=== PATIENT | female | born 1950 | race Caucasian/White ===

== ENCOUNTER 2017-07-12 12:53 | Emergency (ER) | payer MEDICARE, OTHER ==
[~2017-07-12] VITALS: Ht 160 cm; Wt 59.0 kg
[~2017-07-12 12:53] MED LIST: ATEN25TA PO; ATR20T PO; KETO-22 PO; POTASSIUM CITRATE; ROSU5TAB PO; SIMV20TA3 PO
--- OUTSIDE RECORDS SUMMARY | 2017-07-12 12:59 | XMS REPORT | Continuity of Care Document ---
Author Author [facility] Organization [facility] Address Unknown Phone Unavailable Allergies Active Description Code Type Severity Reaction Onset Reported/Identified Relationship to Patient Clinical Status Yes codeine [id number] Drug Allergy Unknown N/V 03/18/2016 Yes nitrofurantoin [id number] Drug Allergy Unknown N/A 03/18/2016 Medications Problems Date Dx Coded Attending Type Code Diagnosis Diagnosed By 12/04/2010 Ot V64.3 NO PROC FOR REASONS NEC 12/04/2010 Ot V76.51 SCREEN MAL NEOP-COLON 05/14/2011 Ot 813.42 FX DISTAL RADIUS NEC-CL 05/14/2011 Ot 916.0 ABRASION HIP LEG 05/14/2011 Ot 920 CONTUSION FACE/SCALP/NCK 05/14/2011 Ot 959.01 HEAD INJURY, NOS 05/14/2011 Ot E000.8 OTHER EXTERNAL CAUSE STATUS 05/14/2011 Ot E849.0 ACCIDENT IN HOME 05/14/2011 Ot E884.9 FALL-1 LEVEL TO OTH [facility] 01/04/2012 Ot 715.34 LOC OSTEOARTH NOS-HAND 01/04/2012 Ot 842.10 SPRAIN OF HAND NOS 01/04/2012 Ot 959.5 FINGER INJURY NOS 01/04/2012 Ot E000.0 CIVILIAN ACTIVITY DONE FOR INCOME OR PAY 01/04/2012 Ot E013.2 ACTIVITIES INVOLVING VACUUMING 01/04/2012 Ot [address]849[address] [facility] 01/04/2012 Ot E927.0 OVEREXERTION FROM SUDDEN STRENUOUS MOVEM 08/02/2014 RUTH JORDAN, JOAO Telles Ot 241.0 08/10/2014 VESNA JORDAN, PELON White Ot V76.12 08/10/2014 VESNA JORDAN, PELON White Ot 610.4 06/29/2015 RUTH JORDAN, JOAO Telles Ot E04.1 06/30/2015 RUTH JORDAN, JOAO Telles Ot E04.1 07/06/2015 VESNA JORDAN, PELON White Ot Z12.31 07/20/2015 RUTH JORDAN, JOAO Telles Ot E04.1 03/18/2016 Ot 787.3 FLATUL/ERUCTAT/GAS PAIN 03/18/2016 Ot 478.19 OTHER DISEASE OF NASAL CAVITY AND SINUSE 03/18/2016 Ot 793.89 OTH (ABN) FINDINGS ON RADIOLOGICAL EXAMI 03/18/2016 Ot V76.12 OTH SCREEN MAMMO-MALIGN NEOPLASM OF REY 03/18/2016 Ot 241.0 NONTOX UNINODULAR GOITER 03/18/2016 Ot 241.0 NONTOX UNINODULAR GOITER 03/18/2016 Ot V76.12 OTH SCREEN MAMMO-MALIGN NEOPLASM OF REY 03/18/2016 Ot 241.0 NONTOX UNINODULAR GOITER 03/18/2016 ANAIS LOZADA DO Ot V76.12 OTH SCREEN MAMMO-MALIGN NEOPLASM OF REY 03/18/2016 RUTH JORDAN, JOAO Telles Ot 241.0 NONTOX UNINODULAR GOITER 03/18/2016 VESNA JORDAN, PELON White Ot V76.12 OTH SCREEN MAMMO-MALIGN NEOPLASM OF REY 03/18/2016 RUTH JORDAN, JOAO Telles Ot 241.0 NONTOX UNINODULAR GOITER 03/18/2016 PELON MALAGON MD Ot 610.4 MAMMARY DUCT ECTASIA 03/18/2016 PELON MALAGON MD Ot Z12.31 ENCNTR SCREEN MAMMOGRAM FOR MALIGNANT NE 03/18/2016 RUTH JORDAN, JOAO Telles Ot E04.1 NONTOXIC SINGLE THYROID NODULE 03/18/2016 OSORIO JORDAN, JUANITA Berger Ot M26.62 ARTHRALGIA OF TEMPOROMANDIBULAR JOINT 03/18/2016 JUANITA AC MD Ot R68.84 JAW PAIN 03/20/2016 JUANITA AC MD Ot M26.62 ARTHRALGIA OF TEMPOROMANDIBULAR JOINT 03/20/2016 OSORIO JORDAN, JUANITA Berger Ot R68.84 JAW PAIN 06/20/2016 Ot 478.19 OTHER DISEASE OF NASAL CAVITY AND SINUSE 06/20/2016 Ot 793.89 OTH (ABN) FINDINGS ON RADIOLOGICAL EXAMI 06/20/2016 Ot V76.12 OTH SCREEN MAMMO-MALIGN NEOPLASM OF REY 06/20/2016 Ot 241.0 NONTOX UNINODULAR GOITER 06/20/2016 Ot 241.0 NONTOX UNINODULAR GOITER 06/20/2016 Ot V76.12 OTH SCREEN MAMMO-MALIGN NEOPLASM OF REY 06/20/2016 Ot 241.0 NONTOX UNINODULAR GOITER 06/20/2016 ANAIS LOZADA DO Ot V76.12 OTH SCREEN MAMMO-MALIGN NEOPLASM OF REY 06/20/2016 RUTH JORDAN, JOAO Telles Ot 241.0 NONTOX UNINODULAR GOITER 06/20/2016 VESNA JORDAN, PELON White Ot V76.12 OTH SCREEN MAMMO-MALIGN NEOPLASM OF REY 06/20/2016 RUTH JORDAN, JOAO Telles Ot 241.0 NONTOX UNINODULAR GOITER 06/20/2016 VESNA JORDAN, PELON White Ot 610.4 MAMMARY DUCT ECTASIA 06/20/2016 PELON MALAGON MD Ot Z12.31 ENCNTR SCREEN MAMMOGRAM FOR MALIGNANT NE 06/20/2016 RUTH JORDAN, JOAO Telles Ot E04.1 NONTOXIC SINGLE THYROID NODULE 06/21/2016 JASWINDER PATRICK APRN Ot Z12.31 ENCNTR SCREEN MAMMOGRAM FOR MALIGNANT NE 06/26/2016 JASWINDER PATRICK APRN Ot Z12.31 ENCNTR SCREEN MAMMOGRAM FOR MALIGNANT NE 06/26/2016 JASWINDER PATRICK APRN Ot Z12.31 ENCNTR SCREEN MAMMOGRAM FOR MALIGNANT NE 06/28/2016 JASWINDER PATRICK APRN Ot Z12.31 ENCNTR SCREEN MAMMOGRAM FOR MALIGNANT NE 06/19/2017 PELON MALAGON MD Ot Z12.31 ENCNTR SCREEN MAMMOGRAM FOR MALIGNANT NE 06/24/2017 JASWINDER PATRICK APRN Ot Z12.31 ENCNTR SCREEN MAMMOGRAM FOR MALIGNANT NE 06/30/2017 PELON MALAGON MD, Ot Z12.31 ENCNTR SCREEN MAMMOGRAM FOR MALIGNANT NE Procedures Results Encounters ACCT No. Visit Date/Time Discharge Status Pt. Type Provider Facility Loc./Unit Complaint [id number] 06/27/2017 11:36:00 2016 23:59:59 [facility] Outpatient JASWINDER PATRICK APRN [facility] RAD R10.817 [id number] 06/24/2017 10:57:00 2016 23:59:59 [facility] Outpatient PELON MALAGON MD [facility] RAD SCREENING [id number] 06/20/2016 09:21:00 2015 23:59:59 CLS Outpatient JASWINDER PATRICK Anabel [employer] [facility] RAD ENCOUNTER FOR SCREENING MAMMO [id number] 03/18/2016 19:08:00 2015 19:32:00 DIS Emergency OSORIO JORDAN, JUANITA Berger [facility] ER JAW PAIN [id number] 06/27/2015 10:52:00 2014 23:59:59 CLS Outpatient JOAO MIRANDA MD [facility] RAD THYROID NODULE [id number] 06/13/2015 10:01:00 2014 23:59:59 CLS Outpatient PELON MALAGON MD [facility] RAD SCREENING [id number] 07/05/2014 08:07:00 2013 23:59:59 CLS Outpatient JOAO MIRANDA MD [facility] RAD THYROID NODULES [id number] 06/22/2014 11:26:00 2013 23:59:59 CLS Outpatient PELON MALAGON MD [facility] RAD ABN MAMMO,INCREASED DENSITY [id number] 06/11/2014 10:06:00 2013 23:59:59 CLS Outpatient PELON MALAGON MD [facility] RAD ROUTINE [id number] 06/17/2013 15:00:00 2012 23:59:59 CLS Outpatient JOAO MIRANDA MD [facility] RAD THY NODULE [id number] 06/04/2013 14:42:00 2012 23:59:59 CLS Outpatient ANAIS LOZADA DO [facility] RAD SCREENING [id number] 03/20/2013 14:41:00 2012 23:59:59 CLS Outpatient [id number] 07/12/2017 12:55:00 ACT Emergency VINNIE ESPINOSA DO [facility] ER BURNING WHEN URINATING [id number] 08/07/2012 11:28:00 Document Registration [id number] 06/02/2012 15:00:00 Document Registration [id number] 05/08/2012 11:14:00 Document Registration [id number] 04/22/2012 10:34:00 Document Registration [id number] 01/04/2012 09:45:00 Document Registration [id number] 05/30/2011 14:41:00 Document Registration [id number] 05/14/2011 20:41:00 Document Registration [id number] 02/13/2011 13:58:00 Document Registration [id number] 12/05/2010 07:20:00 Document Registration [id number] 12/04/2010 07:03:00 Document Registration
[2017-07-12 13:36] LABS: PH,URINE 7 (5-9); PROTEIN,URINE NEGATIVE (NEGATIVE)
[2017-07-12 13:38] LABS: BILIRUBIN,URINE NEGATIVE (NEGATIVE); KETONES,URINE NEGATIVE (NEGATIVE); LEUKOCYTE ESTERASE ,URINE 2+ (NEGATIVE); NITRITE,URINE NEGATIVE (NEGATIVE); SQUAMOUS EPITHELIAL CELL,UR >50 /HPF; UROBILINOGEN,URINE NORMAL (NORMAL)
[2017-07-12] MEDS ORDERED: PHEN-640 PO (14:29)
[2017-07-12] MEDS ORDERED: SULF1TAB35 PO (14:29)
--- NOTE | 2017-07-12 14:29 | ED GU-Female ---
General Chief Complaint: -Female Stated Complaint: BURNING WHEN URINATING Nursing Triage Note: pt reports urinary retention, urgency, frequency. was treated recently for uti by dr love. she started cipro on 06/27/17, took 7 day regimen. symptoms returned early this week. Nursing Sepsis Screen: No Definite Risk Allergies and Home Medications Allergies Coded Allergies: codeine (Unverified Allergy, Unknown, N/V, 03/18/16) nitrofurantoin (Verified Allergy, Unknown, 03/18/16) Home Medications Atenolol 25 Mg Tablet, 1 TAB PO BID, #60 (Reported) Rosuvastatin Calcium 5 Mg Tablet, Unknown Dose PO DAILY, (Reported) Past Doxlhht-Bncnsr-Vctzxa Hx Patient Social History Alcohol Use: Occasionally Uses Recreational Drug Use: No Smoking Status: Never a Smoker Recent Foreign Travel: No Contact w/Someone Who Travel: No Recent Infectious Disease Expo: No Recent Hopitalizations: No Immunizations Up To Date Tetanus Booster (TDap): Unknown Seasonal Allergies Seasonal Allergies: No Surgeries History of Surgeries: Yes Surgeries: Appendectomy, Bladder Surgery, Hysterectomy Respiratory History of Respiratory Disorde: No Cardiovascular History of Cardiac Disorders: Yes Cardiac Disorders: High Cholesterol, Hypertension Neurological History of Neurological Disord: No Reproductive System Hx Reproductive Disorders: Yes (VAGINAL PROLAPSE) Sexually Transmitted Disease: No [employer] History: Hysterectomy, Menopausal Genitourinary Genitourinary Disorders: Kidney Stones Gastrointestinal History of Gastrointestinal Di: No Musculoskeletal History of Musculoskeletal Dis: No Endocrine History of Endocrine Disorders: No Cancer History of Cancer: No Psychosocial History of Psychiatric Problem: No Integumentary History of Skin or Integumenta: No Blood Transfusions History of Blood Disorders: No Adverse Reaction to a Blood Tr: No Physical Exam Vital Signs Vital Sign - Last 12Hours 07/12/17 13:03 Temp 98.7 Pulse 71 Resp 16 B/P (MAP) 148/70 Capillary Refill : Less Than 3 Seconds Progress/Results/Core Measures Suspected Sepsis Recent Fever Within 48 Hours: No Infection Criteria Present: Suspected New Infection New/Unexplained Altered Menta: No Sepsis Screen: No Definite Risk Sepsis Diagnosis: SIRS Temperature:98.7 Pulse: 71 Respiratory Rate: 16 Blood Pressure 148 /70 Mean: 96 Results/Orders Lab Results Laboratory Tests Test 07/12/17 13:10 Range/Units Urine Color YELLOW Urine Clarity VERY CLOUDY H Urine pH 7 5-9 Urine Specific [place] 1.005 L 1.016-1.022 Urine Protein NEGATIVE NEGATIVE Urine Glucose (UA) NEGATIVE NEGATIVE Urine Ketones NEGATIVE NEGATIVE Urine Nitrite NEGATIVE NEGATIVE Urine Bilirubin NEGATIVE NEGATIVE Urine Urobilinogen NORMAL NORMAL MG/DL Urine Leukocyte Esterase 2+ H NEGATIVE Urine RBC (Auto) NEGATIVE NEGATIVE Urine RBC RARE /HPF Urine WBC 5-10 H /HPF Urine Squamous Epithelial Cells >50 H /HPF Urine Renal Epithelial Cells NONE /HPF Urine Crystals PRESENT H /LPF Urine Amorphous Sediment MOD YAZMIN URATES H /LPF Urine Bacteria FEW H /HPF Urine Casts NONE /LPF Urine Mucus NEGATIVE /LPF Urine Culture Indicated YES My Orders Orders - VINNIE ESPINOSA DO Ua Culture If Indicated (07/12/17 13:16) Urine Culture (07/12/17 13:10) Vital Signs/I&O Vital Sign - Last 12Hours 07/12/17 13:03 Temp 98.7 Pulse 71 Resp 16 B/P (MAP) 148/70 Capillary Refill : Less Than 3 Seconds Blood Pressure Mean: 96 Departure Impression Impression: Primary Impression: Urinary tract infection Disposition: HOME, SELF-CARE Condition: Stable Departure-Patient Inst. Referrals: MELISSA LOVE MD (PCP/Family) Primary Care Physician Patient Instructions: Urinary Tract Infection, Adult (DC) Add. Discharge Instructions: LOTS OF CLEAR LIQUIDS--NO COFFEE, POP OR TEA TYLENOL AND MOTRIN NEEDED FOR PAIN FOLLOW UP WITH DR. LOVE IN 2-3 DAYS IF NO BETTER All discharge instructions reviewed with patient and/or family. Voiced understanding. Scripts Phenazopyridine HCl (Pyridium) 200 Mg Tablet 1 TAB PO TID for BLADDER DISCOMFORT, #15 TAB Prov: VINNIE ESPINOSA DO 07/12/17 Sulfamethoxazole/Trimethoprim (Bactrim Ds Tablet) 1 Each Tablet 1 EACH PO BID, #20 TAB Prov: FRANKLIN ESPINOSAA K 07/12/17 VINNIE ESPINOSA DO Jul 12, 2017 14:29
[2017-07-12 14:33] VITALS: BP 148/70
== END 2017-07-12 14:33 | disposition home or self-care (01) ==
LOC: EDUNIT# 12:53 → ER 12:55
DX: N39.0 Urinary tract infection, site not specified (principal); E78.00 Pure hypercholesterolemia, unspecified; I10 Essential (primary) hypertension; Z90.49 Acquired absence of other specified parts of digestive tract; Z90.710 Acquired absence of both cervix and uterus; Z87.442 Personal history of urinary calculi
CPT/HCPCS: 81000; 87088; 99282

== ENCOUNTER → 2018-07-04 | Outpatient (CLI) | payer MEDICARE, OTHER ==
[~2018-07-04] MED LIST changes: +PHEN-640 PO; +SULF1TAB35 PO
--- NOTE | 2018-07-08 09:39 | Diagnostic Imaging Report ---
Digital mammogram. Bilateral screening with 3-D tomosynthesis. The study was compared to prior exams of 06/24/2017, 06/20/2016 and 06/12/2015. At this time there are no current complaints. FINDINGS: The fibroglandular tissue in both breasts is dense. This does limit the sensitivity of this exam. Overall, there does not appear to have been any significant change when compared to the prior study. No primary or secondary sign of malignancy is noted. IMPRESSION: There is no radiographic evidence for malignancy. ACR BI-RADS Category 1: Negative. Result letter will be mailed to the patient. Note: At least 10% of breast cancer is not imaged by mammography. Dictated by: Dictated on workstation # [id number]
== END ==
LOC: RAD 15:00
PROVIDERS: ATTEND Obstetrics & Gynecology
DX: Z12.31 Encounter for screening mammogram for malignant neoplasm of breast (principal)
CPT/HCPCS: 77067

== ENCOUNTER → 2019-01-13 | Outpatient (CLI) | payer MEDICARE, OTHER ==
--- NOTE | 2019-01-13 15:58 | Diagnostic Imaging Report ---
INDICATION: Osteoporosis, postmenopausal state. COMPARISON: None available. FINDINGS: AP Spine L1-L4: [BMD (g/cm2): 0.932] [T-Score: -2.2] [Z-Score: -0.4] [BMD Previous: N/A] [BMD % Change: N/A] LT Hip Neck: [BMD (g/cm2): 0.808] [T-Score: -1.7] [Z-Score: 0.2] LT Hip Total: [BMD (g/cm2):0.878] [T-Score:-1.0] [Z-Score: 0.6] [BMD Previous: N/A] [BMD % Change: N/A] RT Hip Neck: [BMD (g/cm2):0.814] [T-Score:-1.6] [Z-Score:0.2] RT Hip Total: [BMD (g/cm2):0.878] [T-score:-1.0] [Z-Score:0.6] [BMD Previous:N/A] [BMD % Change:N/A] *Indicates significant change from prior examination based on 95% confidence level. World Health Organization criteria for BMD interpretation classify patients as Normal (T-score at or above -1.0), Osteopenic (T-score between -1.0 and -2.5) or Osteoporotic (T-score at or below -2.5). LIMITATIONS AND MODIFICATION: None. FRACTURE RISK (FRAX SCORE): The ten year probability of (%): Major Osteoporotic Fracture: [16.8] Hip Fracture: [2.7] IMPRESSION: 1. Osteopenia (Low bone mass). 2. Baseline examination. 3. See below National Osteoporosis Foundation guidelines on when to potentially initiate pharmacologic therapy. Based on the National Osteoporosis Foundation Guidelines, pharmacologic treatment should be initiated in any of the following, unless clinical conditions suggest otherwise: * Any patient with prior fragility fracture of the hip or vertebrae. A spine fracture indicates 5X risk for subsequent spine fracture and 2X risk for subsequent hip fracture. * Osteoporosis (T-score <-2.5). * Postmenopausal women and men age 50 and older with low bone mass/osteopenia (T-score between -1.0 and -2.5) by DXA and 10-year major osteoporotic fracture greater than 20% or a 10-year probability of hip fracture greater than 3%. These fracture risks are supplied above in the FRAX score, if applicable. * Clinician judgement and/or patient preferences may indicate treatment for people with 10-year fracture probabilities above or below these levels. Dictated by: Dictated on workstation # [id number]
== END ==
LOC: RAD 10:48
DX: M85.89 Other specified disorders of bone density and structure, multiple sites (principal); M81.0 Age-related osteoporosis without current pathological fracture; Z78.0 Asymptomatic menopausal state
CPT/HCPCS: 77080

== ENCOUNTER → 2019-07-29 | Outpatient (CLI) | payer MEDICARE, OTHER ==
--- NOTE | 2019-07-31 09:11 | Diagnostic Imaging Report ---
Digital mammogram. Indication: Bilateral screening This study was compared to the prior exams of 07/04/2018, 06/24/2017 and 06/20/2016. At this time there are no current complaints. The current study was also evaluated with a Computer Aided Detection (CAD) system. FINDINGS: The fibroglandular tissue in both breasts is heterogeneously dense. This does limit the sensitivity of this exam. Overall, there does not appear to have been any significant change when compared to the prior study. No primary or secondary sign of malignancy is noted. IMPRESSION: There is no radiographic evidence for malignancy. ACR BI-RADS Category 1: Negative. Result letter will be mailed to the patient. Note: At least 10% of breast cancer is not imaged by mammography. Dictated on workstation # [id number]
== END ==
LOC: RAD 15:01
PROVIDERS: ATTEND Nurse Practitioner Family
DX: Z12.31 Encounter for screening mammogram for malignant neoplasm of breast (principal); R10.817 Generalized abdominal tenderness
CPT/HCPCS: 77067

== ENCOUNTER → 2020-08-05 | Outpatient (CLI) | payer MEDICARE, OTHER ==
--- NOTE | 2020-08-08 12:26 | Diagnostic Imaging Report ---
INDICATION: Routine screening. COMPARISON: 07/29/2019 and 07/04/2018. TECHNIQUE: 2D and 3D bilateral screening mammography was performed with CAD. FINDINGS: Both breasts remain heterogeneously dense, limiting the sensitivity of mammography. There are scattered benign calcifications throughout both breasts. No mass or malignant appearing microcalcifications are seen. The axillae are unremarkable. IMPRESSION: No mammographic features suspicious for malignancy are identified. ACR BI-RADS Category 2: Benign findings. Result letter will be mailed to the patient. Note: At least 10% of breast cancer is not imaged by mammography. Dictated by: Dictated on workstation # [id number]
== END ==
LOC: RAD 15:06
DX: Z12.31 Encounter for screening mammogram for malignant neoplasm of breast (principal)
CPT/HCPCS: 77063; 77067

== ENCOUNTER → 2021-08-07 | Outpatient (CLI) | payer MEDICARE ==
[~2021-08-07] MED LIST changes: -SULF1TAB35 PO; +SULF1TAB38 PO
--- NOTE | 2021-08-07 16:59 | Diagnostic Imaging Report ---
INDICATION: Routine screening. COMPARISON is made with prior mammograms 08/05/2020 and 07/29/2019. 2-D and 3-D bilateral screening mammography was performed with CAD. Both breasts are heterogeneously dense, limiting the sensitivity of mammography. Scattered benign calcifications are again noted bilaterally. No mass or malignant-appearing microcalcifications are seen. Axillae are unremarkable. IMPRESSION: BI-RADS Category 2 No mammographic features suspicious for malignancy are identified. ACR BI-RADS Category 2: Benign findings. Result letter will be mailed to the patient. Note: At least 10% of breast cancer is not imaged by mammography. Dictated by: Dictated on workstation # [id number]
== END ==
LOC: RAD 14:30
PROVIDERS: ATTEND Family Medicine
DX: Z12.31 Encounter for screening mammogram for malignant neoplasm of breast (principal)
CPT/HCPCS: 77063; 77067

== ENCOUNTER → 2021-10-18 | Outpatient (CLI) | payer MEDICARE, OTHER ==
[~2021-10-18] MED LIST changes: +BARIUM for suspension 96% w/w (Vanilla Silq Medium Density) PO NR; +BARIUM for suspension 98% w/w (Vanilla Silq High Density) PO NR
--- NOTE | 2021-10-18 12:02 | Diagnostic Imaging Report ---
INDICATION: Dysphagia. TECHNIQUE: Patient ingested effervescent crystals as well as thin and thick barium, and imaging of the esophagus, stomach, and proximal small bowel was performed. A total of 1.1 minutes of fluoroscopic time was utilized. FINDINGS: Preliminary radiograph of the abdomen is unremarkable. There is a smooth contour to the esophagus. No esophageal mass or stricture is seen. No gastroesophageal reflux was demonstrated. There is a small hiatal hernia. There is a small distal esophageal ring; however, contrast passes freely into the stomach. The stomach has normal configuration. There is normal emptying into the small bowel. Duodenal bulb is without deformity. There does appear to be diverticulum arising from the third portion of the duodenum. IMPRESSION: Hiatal hernia with distal esophageal ring. However, no obstruction of the passing of oral contrast is identified. The stomach is unremarkable. Dictated by: Dictated on workstation # [id number]
== END ==
LOC: RAD 09:00
PROVIDERS: ATTEND Family Medicine
DX: K44.9 Diaphragmatic hernia without obstruction or gangrene (principal)
CPT/HCPCS: 74246

== ENCOUNTER → 2022-08-16 | Outpatient (CLI) | payer MEDICARE, OTHER ==
[~2022-08-16] MED LIST changes: -BARIUM for suspension 96% w/w (Vanilla Silq Medium Density) PO NR; -BARIUM for suspension 98% w/w (Vanilla Silq High Density) PO NR
--- NOTE | 2022-08-17 11:08 | Diagnostic Imaging Report ---
Indication: Routine screening. Comparison is made with prior mammograms 08/07/2021 and 08/05/2020. 2-D and 3-D bilateral screening mammography was performed with CAD. Both breasts are heterogeneously dense, limiting the sensitivity of mammography. The overall parenchymal pattern is stable. No mass or malignant-appearing microcalcifications are seen. Axillae are unremarkable. IMPRESSION: BI-RADS Category 2 No mammographic features suspicious for malignancy are identified. ACR BI-RADS Category 2: Benign findings. Result letter will be mailed to the patient. Note: At least 10% of breast cancer is not imaged by mammography. Dictated by: Dictated on workstation # [id number]
== END ==
LOC: RAD 15:30
PROVIDERS: ATTEND Internal Medicine
DX: Z12.31 Encounter for screening mammogram for malignant neoplasm of breast (principal)
CPT/HCPCS: 77063; 77067

== ENCOUNTER 2023-05-21 23:08 | Inpatient (IN) | payer MEDICARE, OTHER ==
[~2023-05-21] VITALS: Ht 160 cm; Wt 66.0 kg
[2023-05-21] MEDS ORDERED: NS IV 1000 ML 1,000 ML IV STA (23:16)
--- NOTE | 2023-05-21 23:18 | ED General ---
General Chief Complaint: Abdominal/GI Problems Stated Complaint: ABD PAIN/VOMITING/COUGH Nursing Triage Note: PT TO RM 9 BY EMS WITH CC OF NAUSEA, VOMITING, COUGH, FEVER, AND CHILLS SINCE YESTERDAY. PT REPORTS ABD PAIN SINCE THIS PM. PT STATES RECIEVED FLU SHOT 2 DAYS PRIOR AND FEELS SHE IS HAVING A REACTION. Source of Information: Patient, EMS History of Present Illness Date Seen by Provider: May 21, 2023 Time Seen by Provider: 23:08 Initial Comments Here by EMS with report of nausea, vomiting, cough, fever, chills, body aches since yesterday. She did get her flu shot a few days ago. EMS reported fever of 105. Patient's last Tylenol dose was about 6 hours ago. She reports that she likely vomited the medicine at that time. EMS reports tachycardia in the field with O2 sats in the lower 90s and tachycardia. They did apply O2 via n garrick cannula to see if that helps with the tachycardia. That remained. Patient has had nausea and vomiting and EMS reports that she vomited a couple times especially with cough while in route. They were a BLS crew and were unable to do anything other than monitor and supportive care. Patient denies diarrhea. She does admit to cough, congestion and body aches as her main problem emesis and posttussive emesis. She has had COVID-vaccine early in the course of the disease but has not had booster. She reports that she believes she had COVID early on as well. Timing/Duration: 1-2 Days, Getting Worse Associated Systoms: Cough, Fever/Chills, Nausea/Vomiting, Weakness Allergies and Home Medications Allergies Coded Allergies: codeine (Unverified Allergy, Unknown, N/V, 03/18/16) nitrofurantoin (Verified Allergy, Unknown, 03/18/16) Patient Home Medication List Home Medication List Reviewed: Yes Atenolol (Atenolol) 25 Mg Tablet, 1 TAB PO BID, (Reported) Entered as Reported by: JERI OSBORNE on 03/18/161915 Phenazopyridine HCl (Pyridium) 200 Mg Tablet, 1 TAB PO TID Prescribed by: VINNIE ESPINOSA on 07/12/17 1429 Rosuvastatin Calcium (Crestor) 5 Mg Tablet, Unknown Dose PO DAILY, (Reported) Entered as Reported by: JERI OSBORNE on 03/18/16 191 Sulfamethoxazole/Trimethoprim (Bactrim Ds Tablet) 1 Each Tablet, 1 EACH PO BID Prescribed by: VINNIE ESPINOSA on 07/12/17 1429 Review of Systems Review of Systems Constitutional: see HPI, chills, fever EENTM: nose congestion; No throat pain Respiratory: cough, short of breath Cardiovascular: No chest pain, No edema Gastrointestinal: No abdominal pain, No diarrhea; nausea, vomiting Genitourinary: no symptoms reported Musculoskeletal: joint pain, muscle pain Skin: No change in color, No lesions Psychiatric/Neurological: Weakness Past Bfwbjya-Eojwnp-Jukxje Hx Patient Social History Tobacco Use?: No Use of E-Cig and/or Vaping dev: No Substance use?: No Immunizations Up To Date Tetanus Booster (TDap): Unknown Seasonal Allergies Seasonal Allergies: No Past Medical History Surgeries: Yes (BLADDER SUSPENSION; HYST/OVARIES INTACT) Appendectomy, Bladder Surgery, Hysterectomy Respiratory: No Cardiac: Yes High Cholesterol, Hypertension Neurological: No Reproductive Disorders: Yes (VAGINAL PROLAPSE) [employer] History: Hysterectomy, Menopausal Sexually Transmitted Disease: No Genitourinary: Yes Bladder Infection, Kidney Stones Gastrointestinal: No Musculoskeletal: No Endocrine: No HEENT: No Cancer: No Psychosocial: No Integumentary: No Blood Disorders: No Adverse Reaction/Blood Tranf: No Family Medical History Reviewed Nursing Family Hx No Pertinent Family Hx Physical Exam-Suspected Sepsis Physical Exam Vital Signs Vital Signs - First Documented 05/21/23 23:09 Temp 39.4 Pulse 135 Resp 16 B/P (MAP) 105/84 (91) Pulse Ox 93 O2 Delivery Room Air Capillary Refill : Less Than 3 Seconds Blood Pressure Mean: 91 Height, Weight, BMI Height: 5'3.00" Weight: 130lbs. oz. 58.352035pz; 22.00 BMI Method:Stated General Appearance: WD/WN, Mild Distress HEENT: PERRL/EOMI, Pharynx Normal Neck: Non Tender, Supple Respiratory: Lungs Clear, Normal Breath Sounds Cardiovascular: No Murmur, Tachycardia Gastrointestinal: Non Tender, Soft Back: Normal Inspection, No CVA Tenderness, No Vertebral Tenderness Extremity: Normal Range of Motion, Non Tender Neurologic/Psychiatric: Alert, Oriented x3 Skin: normal color, warm/dry Focused Exam Lactate Level 05/21/23 23:16: Lactic Acid Level 2.10*H Lactic Acid Level Laboratory Tests Test 05/21/23 23:16 Lactic Acid Level 2.10 MMOL/L (0.50-2.00) *H Progress/Results/Core Measures Suspected Sepsis SIRS Temperature: Pulse: 135 Respiratory Rate: 16 Laboratory Tests 05/21/23 23:16: White Blood Count 8.9 Blood Pressure 105 /84 Mean: 91 05/21/23 23:16: Lactic Acid Level 2.10*H Laboratory Tests 05/21/23 23:16: Creatinine 0.77, INR Comment 1.1, Platelet Count 179, Total Bilirubin 1.4H Results/Orders Lab Results Laboratory Tests Test 05/21/23 23:16 05/21/23 23:25 Range/Units White Blood Count 8.9 4.3-11.0 10^3/uL Red Blood Count 3.95 3.80-5.11 10^6/uL Hemoglobin 11.6 11.5-16.0 g/dL Hematocrit 35 35-52 % Mean Corpuscular Volume 89 80-99 fL Mean Corpuscular Hemoglobin 29 25-34 pg Mean Corpuscular Hemoglobin Concent 33 32-36 g/dL Red Cell Distribution Width 13.3 10.0-14.5 % Platelet Count 179 130-400 10^3/uL Mean Platelet Volume 11.4 9.0-12.2 fL Immature Granulocyte % (Auto) 1 % Neutrophils (%) (Auto) 92 H 42-75 % Lymphocytes (%) (Auto) 4 L 12-44 % Monocytes (%) (Auto) 2 0-12 % Eosinophils (%) (Auto) 0 0-10 % Basophils (%) (Auto) 0 0-10 % Neutrophils # (Auto) 8.2 H 1.8-7.8 10^3/uL Lymphocytes # (Auto) 0.4 L 1.0-4.0 10^3/uL Monocytes # (Auto) 0.2 0.0-1.0 10^3/uL Eosinophils # (Auto) 0.0 0.0-0.3 10^3/uL Basophils # (Auto) 0.0 0.0-0.1 10^3/uL Immature Granulocyte # (Auto) 0.1 0.0-0.1 10^3/uL Neutrophils % (Manual) 92 % Lymphocytes % (Manual) 3 % Monocytes % (Manual) 4 % Blood Morphology Comment NORMAL Prothrombin Time 13.9 12.2-14.7 SEC INR Comment 1.1 0.8-1.4 Activated Partial Thromboplast Time 31 24-35 SEC Sodium Level 140 135-145 MMOL/L Potassium Level 3.4 L 3.6-5.0 MMOL/L Chloride Level 106 98-107 MMOL/L Carbon Dioxide Level 20 L 21-32 MMOL/L Anion Gap 14 5-14 MMOL/L Blood Urea Nitrogen 19 H 7-18 MG/DL Creatinine 0.77 0.60-1.30 MG/DL Estimat Glomerular Filtration Rate 80 BUN/Creatinine Ratio 25 Glucose Level 150 H 70-105 MG/DL Lactic Acid Level 2.10 *H 0.50-2.00 MMOL/L Calcium Level 9.2 8.5-10.1 MG/DL Corrected Calcium 9.3 8.5-10.1 MG/DL Total Bilirubin 1.4 H 0.1-1.0 MG/DL Aspartate Amino Transf (AST/SGOT) 176 H 5-34 U/L Alanine Aminotransferase (ALT/SGPT) 223 H 0-55 U/L Alkaline Phosphatase 191 H 40-136 U/L C-Reactive Protein High Sensitivity 20.38 H 0.00-0.50 MG/DL Total Protein 6.9 6.4-8.2 GM/DL Albumin 3.9 3.2-4.5 GM/DL Influenza Type A (RT-PCR) Not Detected Not Detecte Influenza Type B (RT-PCR) Not Detected Not Detecte SARS-CoV-2 RNA (RT-PCR) Not Detected Not Detecte Urine Color YELLOW Urine Clarity SL CLOUDY Urine pH 7.0 5-9 Urine Specific [place] 1.020 1.016-1.022 Urine Protein 2+ H NEGATIVE Urine Glucose (UA) NEGATIVE NEGATIVE Urine Ketones NEGATIVE NEGATIVE Urine Nitrite POSITIVE H NEGATIVE Urine Bilirubin NEGATIVE NEGATIVE Urine Urobilinogen 2.0 < = 1.0 MG/DL Urine Leukocyte Esterase 1+ H NEGATIVE Urine RBC (Auto) 2+ H NEGATIVE Urine RBC NONE /HPF Urine WBC 25-50 H /HPF Urine Crystals NONE /LPF Urine Bacteria LARGE H /HPF Urine Casts NONE /LPF Urine Mucus NEGATIVE /LPF Urine Culture Indicated YES My Orders Orders - GUDELIA NEGRON MD Cbc And Automated Diff (05/21/23 23:16) Comprehensive Metabolic Panel (05/21/23 23:16) Blood Culture (05/21/23 23:16) Sputum Culture (05/21/23 23:16) Urinalysis (05/21/23 23:16) Urine Culture (05/21/23 23:16) Protime With Inr (05/21/23 23:16) Partial Thromboplastin Time (05/21/23 23:16) Chest 1 View, Ap/Pa Only (05/21/23 23:16) Acetaminophen Tablet (Acetaminophen Ta (05/21/23 23:30) Ed Iv/Invasive Line Start (05/21/23 23:16) Vital Signs Adult Sepsis Patie Q15M (05/21/23 23:16) O2 (05/21/23 23:16) Remove Rings In Anticipation O (05/21/23 23:16) Lactic Acid Analyzer (05/21/23 23:16) Influenza A And B By Pcr (05/21/23 23:16) Hs C Reactive Protein (05/21/23 23:16) Ondansetron Injection (Ondansetron Inj (05/21/23 23:30) Ns Iv 1000 Ml (Ns Iv 1000 Ml) (05/21/23 23:16) Covid 19 Inhouse Test (05/21/23 23:16) Ekg Tracing (05/21/23 23:16) Manual Differential (05/21/23 23:16) Ceftriaxone Iv/Im (Ceftriaxone Iv/Im) (05/22/23 00:41) Medications Given in ED Current Medications Medications Dose Ordered Sig/Jarrell Route Start Time Stop Time Status Last Admin Dose Admin Acetaminophen 1,000 mg ONCE PRN PO 05/21/23 23:30 05/21/23 23:30 DC 05/21/23 23:23 1,000 MG Ondansetron HCl 4 mg ONCE ONCE IVP 05/21/23 23:30 05/21/23 23:31 DC 05/21/23 23:22 4 MG Vital Signs/I&O 05/21/23 05/21/23 05/22/23 23:09 23:23 00:25 Temp 39.4 39.4 37.6 Pulse 135 110 Resp 16 20 B/P (MAP) 105/84 (91) 123/47 (72) Pulse Ox 93 94 O2 Delivery Room Air Room Air Capillary Refill : Less Than 3 Seconds Blood Pressure Mean: 91 Progress Note : Progress Note Seen and evaluated. Patient has a fever of 39.4 C. We will initiate sepsis protocol. IV, labs including CBC, CMP, CRP, blood cultures, lactic acid and coags ordered. UA and urine culture ordered. We will get chest x-ray. COVID and influenza screen ordered. Normal saline 1 L bolus, Zofran 4 mg IV and acetaminophen 1 g p.o. ordered. Monitor patient. EKG added due to tachycardia. Differential diagnosis includes COVID, influenza, pneumonia, UTI, sepsis, dehydration, electrolyte abnormality 0045: Labs reviewed and CBC shows normal white count and normal hemoglobin but does show increased neutrophilia. Coags are normal. Chemistry shows grossly normal electrolytes with normal serum creatinine and mildly elevated LFTs consistent with vomiting. CRP is grossly elevated at 20 and lactic acid is elevated at 2.1. UA results note nitrite positive urinary tract infection with 25-50 whites and large bacteria. Flu and COVID are negative. Given her findings, sepsis from urinary tract infection is noted with fever and tachycardia. Patient has been vomiting and this is concerning for being able to treat her outpatient. Given her sepsis findings, inpatient treatment is indicated. Rocephin 1 g IV ordered. I did discuss the case with Dr. Gunn and she accepts patient for admission, inpatient status to the medical surgical unit. This was discussed with patient and family who agree. Temperature has improved and heart rate is currently 111 with O2 sat 92% on room air and blood pressure 126/81. We will continue IV fluids inpatient. ECG Initial ECG Impression Date: May 21, 2023 Initial ECG Impression Time: 23:34 Initial ECG Rate: 123 Initial ECG Rhythm: S.Tach Comment Sinus tachycardia with normal axis. No evidence of ST elevation SD. Normal QRS duration. Normal MO interval. Interpreted by me. Departure Communication (Admissions) Time/Spoke to Admitting Phy: 00:38 Impression Primary Impression: Sepsis Qualified Codes: A41.9 - Sepsis, unspecified organism Additional Impression: Urinary tract infection Qualified Codes: N30.00 - Acute cystitis without hematuria Disposition: ADMITTED INPATIENT Condition: Stable Admissions Decision to Admit Reason: Admit from ER (General) Decision to Admit/Date: May 22, 2023 Time/Decision to Admit Time: 00:38 GUDELIA NEGRON MD May 21, 2023 23:18
[2023-05-21] MEDS ORDERED: ACETAMINOPHEN 500 MG TABLET PO PRN (23:30)
[2023-05-21] MEDS ORDERED: ONDANSETRON INJECTION 4 MG/2 ML (SDV) IVP ONE (23:30)
[2023-05-21 23:40] LABS: BASOPHILS % (AUTO) 0 % (0-10); EOSINOPHILS % (AUTO) 0 % (0-10); HEMATOCRIT 35 % (35-52); HEMOGLOBIN 11.6 g/dL (11.5-16.0); LYMPHOCYTES # (AUTO) 0.4 10^3/uL (1.0-4.0); LYMPHOCYTES % (AUTO) 4 % (12-44); MEAN CORPUSCULAR HEMOGLOBIN 29 pg (25-34); MEAN CORPUSCULAR HGB CONC 33 g/dL (32-36); MEAN CORPUSCULAR VOLUME 89 fL (80-99); MEAN PLATELET VOLUME 11.4 fL (9.0-12.2); MONOCYTES # (AUTO) 0.2 10^3/uL (0.0-1.0); MONOCYTES % (AUTO) 2 % (0-12); NEUTROPHILS # (AUTO) 8.2 10^3/uL (1.8-7.8); NEUTROPHILS % (AUTO) 92 % (42-75); PLATELET COUNT 179 10^3/uL (130-400); WHITE BLOOD COUNT 8.9 10^3/uL (4.3-11.0)
[2023-05-21 23:59] LABS: ALBUMIN 3.9 GM/DL (3.2-4.5); POTASSIUM 3.4 MMOL/L (3.6-5.0)
[2023-05-22] VITALS (7 sets, daily range): BP systolic 102–151; BP diastolic 56–72
[2023-05-22] LABS: CALCIUM 9.2 MG/DL (8.5-10.1); INR 1.1 (0.8-1.4); PROTHROMBIN TIME PATIENT 13.9 SEC (12.2-14.7)
[2023-05-22 00:02] LABS: TOTAL PROTEIN 6.9 GM/DL (6.4-8.2)
[2023-05-22 00:03] LABS: BILIRUBIN,TOTAL 1.4 MG/DL (0.1-1.0)
[2023-05-22 00:05] LABS: CREATININE SERUM 0.77 MG/DL (0.60-1.30)
[2023-05-22 00:05] LABS: BILIRUBIN,URINE NEGATIVE (NEGATIVE); CLARITY,URINE SL CLOUDY; COLOR,URINE YELLOW; GLUCOSE, URINE (UA) NEGATIVE (NEGATIVE); KETONES,URINE NEGATIVE (NEGATIVE); LEUKOCYTE ESTERASE ,URINE 1+ (NEGATIVE); NITRITE,URINE POSITIVE (NEGATIVE); PROTEIN,URINE 2+ (NEGATIVE)
[2023-05-22 00:06] LABS: BACTERIA,URINE LARGE /HPF; WBC,URINE 25-50 /HPF
[2023-05-22 00:27] LABS: LYMPHOCYTES % (MANUAL) 3 %; MONOCYTES % (MANUAL) 4 %; NEUTROPHILS % (MANUAL) 92 %
[2023-05-22 00:28] LABS: RBC MORPH NORMAL
[2023-05-22] MEDS ORDERED: cefTRIAXone IV/IM 1,000 MG in NS (IVPB) 50 ML 50 ML IV STA (00:41)
[2023-05-22] MEDS ORDERED: ALPRAZolam 0.5 MG TABLET PO STA (00:57)
[2023-05-22] MEDS ORDERED: ACETAMINOPHEN 500 MG TABLET PO PRN ×2 (02:00→20:30)
[2023-05-22] MEDS ORDERED: ONDANSETRON INJECTION 4 MG/2 ML (SDV) IV PRN ×2 (02:00→10:15)
[2023-05-22] MEDS: NS IV 1000 ML 1,000 ML IV SCH ×4 (02:09→20:45)
--- NOTE | 2023-05-22 06:57 | Diagnostic Imaging Report ---
INDICATION: cough, fever TECHNIQUE: Single view chest 11:50 PM CORRELATION STUDY: None FINDINGS: Heart size within normal limits. Perihilar opacities may be reflective of edema versus infiltrate. Additional area of infiltrate left lung base also present. IMPRESSION: 1. Suspect left basilar infiltrate. Additional perihilar opacities may reflect edema versus additional infiltrate. Dictated by: Dictated on workstation # [id number]
[2023-05-22] MEDS ORDERED: HYDROmorphone INJECTION 2 MG/ML VIAL IV PRN (10:15)
[2023-05-22] MEDS ORDERED: CALCIUM CARBONATE 500 MG CHEW TABLET PO PRN (10:15)
[2023-05-22] MEDS ORDERED: BISACODYL 10 MG SUPPOSITORY PR PRN (10:15)
[2023-05-22] MEDS ORDERED: MILK OF MAGNESIA 400 MG/5 ML 30 ML UDC PO PRN (10:15)
[2023-05-22] MEDS ORDERED: LACTULOSE SYRUP 10GM/15ML 30ML UDC PO PRN (10:15)
[2023-05-22] MEDS ORDERED: MELATONIN 3 MG TABLET PO PRN (10:15)
[2023-05-22] MEDS ORDERED: oxyCODONE IMMEDIATE RELEASE 5 MG TABLET PO PRN (10:15)
[2023-05-22] MEDS ORDERED: PATIENT MAY USE OWN MEDS, ALL PO SCH (10:15)
[2023-05-22] MEDS ORDERED: ONDANSETRON 4 MG ORAL DISSOLVE TABLET PO PRN (10:15)
[2023-05-22] MEDS ORDERED: ANTACID SUSPENSION 30 ML UDC PO PRN (10:15)
[2023-05-22] MEDS ORDERED: diphenhydrAMINE INJ 50 MG/ML VIAL IVP PRN (10:15)
[2023-05-22] MEDS ORDERED: diphenhydrAMINE 25 MG TABLET PO PRN (10:15)
[2023-05-22 10:33] LABS: BASOPHILS # (AUTO) 0.1 10^3/uL (0.0-0.1); BASOPHILS % (AUTO) 1 % (0-10); EOSINOPHILS % (AUTO) 0 % (0-10); HEMATOCRIT 31 % (35-52); HEMOGLOBIN 9.8 g/dL (11.5-16.0); LYMPHOCYTES # (AUTO) 0.8 10^3/uL (1.0-4.0); LYMPHOCYTES % (AUTO) 4 % (12-44); MEAN CORPUSCULAR HEMOGLOBIN 29 pg (25-34); MEAN CORPUSCULAR HGB CONC 32 g/dL (32-36); MEAN CORPUSCULAR VOLUME 93 fL (80-99); MEAN PLATELET VOLUME 11.6 fL (9.0-12.2); MONOCYTES # (AUTO) 0.7 10^3/uL (0.0-1.0); MONOCYTES % (AUTO) 4 % (0-12); NEUTROPHILS # (AUTO) 16.2 10^3/uL (1.8-7.8); NEUTROPHILS % (AUTO) 89 % (42-75); PLATELET COUNT 159 10^3/uL (130-400); WHITE BLOOD COUNT 18.2 10^3/uL (4.3-11.0)
[2023-05-22 10:52] LABS: BAND NEUTROPHILS 5 %; BASOPHILS % (MANUAL) 1 %; EOSINOPHILS % (MANUAL) 1 %; LYMPHOCYTES % (MANUAL) 5 %; MONOCYTES % (MANUAL) 2 %; NEUTROPHILS % (MANUAL) 86 %; RBC MORPH NORMAL
[2023-05-22 10:55] LABS: ALBUMIN 3.3 GM/DL (3.2-4.5); BILIRUBIN,DIRECT 0.6 MG/DL (0.0-0.3); BILIRUBIN,INDIRECT 0.4 MG/DL; CALCIUM 8.4 MG/DL (8.5-10.1); CREATININE SERUM 0.69 MG/DL (0.60-1.30); POTASSIUM 3.4 MMOL/L (3.6-5.0); TOTAL PROTEIN 5.9 GM/DL (6.4-8.2)
[2023-05-22] MEDS: ENOXAPARIN 40 MG/0.4 ML SYRINGE SC SCH (11:14)
[2023-05-22] MEDS ORDERED: DOCU100C37 PO (11:39)
[2023-05-22] MEDS ORDERED: OLME40TA18 PO (11:39)
[2023-05-22] MEDS ORDERED: AMLO-250 PO (11:39)
[2023-05-22] MEDS ORDERED: CYAN500T8 PO (11:39)
[2023-05-22] MEDS ORDERED: LEVO50TA6 PO (11:39)
[2023-05-22] MEDS ORDERED: ESTRADIOL 10 MCG VG (11:39)
[2023-05-22] MEDS ORDERED: ROSU40TA23 PO (11:39)
[2023-05-22] MEDS ORDERED: ZINC50TA11 PO (11:39)
[2023-05-22] MEDS ORDERED: IBUP-2473 PO (11:39)
[2023-05-22] MEDS ORDERED: CHOL200059 PO (11:39)
[2023-05-22] MEDS ORDERED: ACET-2267 PO (11:39)
[2023-05-22] MEDS ORDERED: ALPR0.5T7 PO (11:39)
[2023-05-22] MEDS ORDERED: OMEP40CA6 PO (11:39)
[2023-05-22] MEDS ORDERED: MAGN400T39 PO (11:39)
[2023-05-22] MEDS ORDERED: CALC-694 PO (11:39)
[2023-05-22] MEDS: ACETAMINOPHEN 325 MG TABLET PO PRN (11:53)
--- NOTE | 2023-05-22 11:58 | Short Stay Summary ---
MORSE,ROYER 05/22/23 1158: History of Present Illness History of Present Illness Reason for visit/HPI 05/22/2023: CC: Sepsis/UTI HPI: Nancy is a 73 year old female that presented to ED on 05/21 due to N/V with a temperature of 105. She was also tachycardic. Due to this, there was suspected sepsis. She was admitted to the to the MED/SURG unit. She was started on Rocephin. UA found that she had bacteria. Nancy endorses recurrent UTIs along with a history of HTN and HLD. Her labs also showed an elevated lactic acid on 05/21 at 2.1 that has reduced to 0.86 on 05/22. 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 When talked to today, Nancy notes that she feels slightly better. Her concerns about N/V have dissipated. She overall feels weak and like her muscles ache. She has some pain in her middle back, with it not radiating to her flanks. She is sleepy and has no other concerns. She denies any history of liver concerns or heavy alcohol usage. She has no current pain. Nancy notes that she wants to stay in the hospital through the night to ensure that everything is okay since she feels poorly. Date of Admission May 22, 2023 at 01:14 Date of Discharge Attending Physician Jocelyn Mendoza DO Admitting Physician Admitting Physician: Jocelyn Mendoza DO Attending Physician: Jocelyn Mendoza DO Consult Allergies and Home Medications Allergies Coded Allergies: codeine (Unverified Allergy, Unknown, N/V, 03/18/16) nitrofurantoin (Verified Allergy, Unknown, 03/18/16) Patient Home Medication List Home Medication List Reviewed: Yes Acetaminophen (Tylenol Extra Strength) 500 Mg Tablet, 1,000 MG PO Q8H PRN for PAIN-MILD (1-4), (Reported) Entered as Reported by: IRVIN SMALL on 05/22/23 9217 Last Action: Continued Alprazolam (Alprazolam) 0.5 Mg Tablet, 0.5 MG PO TID PRN for ANXIETY, (Reported) Entered as Reported by: IRVIN SMALL on 05/22/23 5798 Last Action: Continued Amlodipine Besylate (Amlodipine Besylate) 5 Mg Tablet, 5 MG PO DAILY, (Reported) Entered as Reported by: IRVIN SMALL on 05/22/231138 Last Action: Continued Calcium Carbonate/Vitamin D3 (Calcium 600 + Vit D Caplet) 600 Mg Calcium-10 Mcg (400 Unit) Tablet, 1 EACH PO BID, (Reported) Entered as Reported by: IRVIN SMALL on 05/22/231138 Last Action: Continued Cholecalciferol (Vitamin D3) (Vitamin D3) 50 Mcg (2000 Unit) Tablet, 50 MCG PO DAILY, (Reported) Entered as Reported by: IRVIN SMALL on 05/22/231138 Last Action: Converted Cyanocobalamin (Vitamin B-12) (Vitamin B-12) 500 Mcg Tablet, 500 MCG PO DAILY, (Reported) Entered as Reported by: IRVIN SMALL on 05/22/231138 Last Action: Converted Docusate Sodium (Docusate Sodium) 100 Mg Capsule, 100 MG PO BID PRN for CONSTIPATION-1ST LINE, (Reported) Entered as Reported by: IRVIN SMALL on 05/22/231138 Last Action: Continued Ibuprofen (Ibuprofen) 200 Mg Tablet, 400 MG PO Q8H PRN for PAIN-MILD (1-4), (Reported) Entered as Reported by: IRVIN SMALL on 05/22/231138 Last Action: Continued Levothyroxine Sodium (Levothyroxine Sodium) 50 Mcg Tablet, 50 MCG PO DAILY, (Reported) Entered as Reported by: IRVIN SMALL on 05/22/231138 Last Action: Continued Magnesium Oxide (Magnesium) 400 Mg Magnesium Tablet, 400 MG PO DAILY, (Reported) Entered as Reported by: IRVIN SMALL on 05/22/231138 Last Action: Converted Olmesartan Medoxomil (Olmesartan Medoxomil) 40 Mg Tablet, 40 MG PO DAILY, (Reported) Entered as Reported by: IRVIN SMALL on 05/22/231138 Last Action: Converted Omeprazole (Omeprazole) 40 Mg Capsule.dr, 40 MG PO DAILY, (Reported) Entered as Reported by: IRVIN SMALL on 05/22/231138 Last Action: Converted Rosuvastatin Calcium (Rosuvastatin Calcium) 40 Mg Tablet, 40 MG PO HS, (Reported) Entered as Reported by: IRVIN SMALL on 05/22/231138 Last Action: Converted Zinc Gluconate (Zinc) 50 Mg Tablet, 50 MG PO DAILY, (Reported) Entered as Reported by: IRVIN SMALL on 05/22/231138 Last Action: Converted [Estradiol 10MCG] 10MCG CREAM.GM., 1 APPLIC VG GRACE,JACEK @[facility], (Reported) Entered as Reported by: IRVIN SMALL on 05/22/231138 Last Action: Converted Discontinued Medications Atenolol (Atenolol) 25 Mg Tablet, 1 TAB PO BID, (Reported) Discontinued Reason: No Longer Taking Entered as Reported by: JERI OSBORNE on 03/18/161915 Last Action: Discontinued Phenazopyridine HCl (Pyridium) 200 Mg Tablet, 1 TAB PO TID Discontinued Reason: No Longer Taking Prescribed by: VINNIE ESPINOSA on 07/12/171428 Last Action: Discontinued Rosuvastatin Calcium (Crestor) 5 Mg Tablet, Unknown Dose PO DAILY, (Reported) Discontinued Reason: No Longer Taking Entered as Reported by: JERI OSBORNE on 03/18/161915 Last Action: Discontinued Sulfamethoxazole/Trimethoprim (Bactrim Ds Tablet) 1 Each Tablet, 1 EACH PO BID Discontinued Reason: No Longer Taking Prescribed by: VINNIE ESPINOSA on 07/12/171428 Last Action: Discontinued Past Weapdbl-Ocuinn-Nvanvo Hx Patient Social History Employed/Student: retired Alcohol Beverage of Choice: Wine Smoking Status: Former Smoker Recent Hopitalizations: No Alcohol Use?: Yes (2-3 glasses of wine/week) Pt feels they are or have been: No Immunizations Up To Date Tetanus Booster (TDap): Unknown Date of Influenza Vaccine: May 17, 2023 Seasonal Allergies Seasonal Allergies: No Surgeries Yes (BLADDER SUSPENSION; HYST/OVARIES INTACT) Appendectomy, Bladder Surgery, Hysterectomy Respiratory No Cardiovascular Yes High Cholesterol, Hypertension Neurological No Reproductive System Hx Reproductive Disorders: Yes (VAGINAL PROLAPSE) Sexually Transmitted Disease: 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, Menopausal Genitourinary Yes Bladder Infection, Kidney Stones Gastrointestinal No Musculoskeletal No Endocrine History of Endocrine Disorders: No HEENT History of HEENT Disorders: No Cancer No Psychosocial History of Psychiatric Problem: No Integumentary History of Skin or Integumenta: No Blood Transfusions History of Blood Disorders: No Adverse Reaction to a Blood Tr: No Family Medical History Significant Family History: No Pertinent Family Hx Review of Systems Constitutional: see HPI, weakness EENTM: no symptoms reported; No blurred vision, No double vision Respiratory: No no symptoms reported Cardiovascular: No no symptoms reported Gastrointestinal: no symptoms reported, see HPI; No jaundice, No nausea, No vomiting Genitourinary: no symptoms reported Musculoskeletal: back pain, muscle pain, muscle cramps Skin: no symptoms reported Psychiatric/Neurological: No Symptoms Reported Physical Exam Vital Signs Vital Signs - First Documented 05/21/23 23:09 Temp 39.4 Pulse 135 Resp 16 B/P (MAP) 105/84 (91) Pulse Ox 93 O2 Delivery Room Air Capillary Refill : Less Than 3 Seconds Height, Weight, BMI Height: 5'3.00" Weight: 130lbs. oz. [id number]; 25.78 BMI Method:Stated General Appearance: No Apparent Distress, WD/WN, Anxious Eyes: Bilateral Eye Normal Inspection, Bilateral Eye PERRL, Bilateral Eye EOMI HEENT: PERRL/EOMI; No Pale Conjunctivae (L), No Pale Conjunctivae (R), No Scleral Icterus (L), No Scleral Icterus (R) Neck: Full Range of Motion, Supple; No JVD Respiratory: Chest Non Tender, Lungs Clear, Normal Breath Sounds, No Accessory Muscle Use, No Respiratory Distress Cardiovascular: Regular Rate, Rhythm, No Edema, No JVD, No Murmur, Normal Peripheral Pulses Gastrointestinal: Normal Bowel Sounds, Non Tender, Soft; No Distended, No Guarding Rectal: Deferred Back: Normal Inspection, Vertebral Tenderness Extremity: Normal Capillary Refill, Normal Inspection, Normal Range of Motion, Non Tender, No Calf Tenderness, No Pedal Edema Neurologic/Psychiatric: Alert, Oriented x3, No Motor/Sensory Deficits, Normal Mood/Affect, note keeper II-XII Norm as Tested Skin: Normal Color, Warm/Dry Lymphatic: No Adenopathy Short Stay Diagnosis Discharge Diagnosis-Short Stay Admission Diagnosis: Sepsis UTI Liver Injury/gallbladder Conclusion Labs Laboratory Tests 05/21/23 23:16: White Blood Count 8.9, Red Blood Count 3.95, Hemoglobin 11.6, Hematocrit 35, Mean Corpuscular Volume 89, Mean Corpuscular Hemoglobin 29, Mean Corpuscular Hemoglobin Concent 33, Red Cell Distribution Width 13.3, Platelet Count 179, Mean Platelet Volume 11.4, Immature Granulocyte % (Auto) 1, Neutrophils (%) (Auto) 92H, Lymphocytes (%) (Auto) 4L, Monocytes (%) (Auto) 2, Eosinophils (%) (Auto) 0, Basophils (%) (Auto) 0, Neutrophils # (Auto) 8.2H, Lymphocytes # (Auto) 0.4L, Monocytes # (Auto) 0.2, Eosinophils # (Auto) 0.0, Basophils # (Auto) 0.0, Immature Granulocyte # (Auto) 0.1, Neutrophils % (Manual) 92, Lympho cytes % (Manual) 3, Monocytes % (Manual) 4, Blood Morphology Comment NORMAL, Prothrombin Time 13.9, INR Comment 1.1, Activated Partial Thromboplast Time 31, Sodium Level 140, Potassium Level 3.4L, Chloride Level 106, Carbon Dioxide Level 20L, Anion Gap 14, Blood Urea Nitrogen 19H, Creatinine 0.77, Estimat Glomerular Filtration Rate 80, BUN/Creatinine Ratio 25, Glucose Level 150H, Lactic Acid Level 2.10*H, Calcium Level 9.2, Corrected Calcium 9.3, Total Bilirubin 1.4H, Aspartate Amino Transf (AST/SGOT) 176H, Alanine Aminotransferase (ALT/SGPT) 223H , Alkaline Phosphatase 191H, C-Reactive Protein High Sensitivity 20.38H, Total Protein 6.9, Albumin 3.9, Influenza Type A (RT-PCR) Not Detected, Influenza Type B (RT-PCR) Not Detected, SARS-CoV-2 RNA (RT-PCR) Not Detected 05/21/23 23:25: Urine Color YELLOW, Urine Clarity SL CLOUDY, Urine pH 7.0, Urine Specific [place] 1.020, Urine Protein 2+H, Urine Glucose (UA) NEGATIVE, Urine Ketones NEGATIVE, Urine Nitrite POSITIVEH, Urine Bilirubin NEGATIVE, Urine Urobilinogen 2.0, Urine Leukocyte Esterase 1+H, Urine RBC (Auto) 2+H, Urine RBC NONE, Urine WBC 25-50H, Urine Crystals NONE, Urine Bacteria LARGEH, Urine Casts NONE, Urine Mucus NEGATIVE, Urine Culture Indicated YES 05/22/23 02:23: Lactic Acid Level 0.86 05/22/23 10:23: White Blood Count 18.2H, Red Blood Count 3.34L, Hemoglobin 9.8L, Hematocrit 31L, Mean Corpuscular Volume 93, Mean Corpuscular Hemoglobin 29, Mean Corpuscular Hemoglobin Concent 32, Red Cell Distribution Width 13.8, Platelet Count 159, Mean Platelet Volume 11.6, Immature Granulocyte % (Auto) 2, Neutrophils (%) (Auto) 89H, Lymphocytes (%) (Auto) 4L, Monocytes (%) (Auto) 4, Eosinophils (%) (Auto) 0, Basophils (%) (Auto) 1, Neutrophils # (Auto) 16.2H, Lymphocytes # (Auto) 0.8L, Monocytes # (Auto) 0.7, Eosinophils # (Auto) 0.0, Basophils # (Auto) 0.1, Immature Granulocyte # (Auto) 0.4H, Neutrophils % (Manual) 86, Lymphocytes % (Manual) 5, Monocytes % (Manual) 2, Blood Morphology Comment NORMAL, Sodium Level 141, Potassium Level 3.4L, Chloride Level 111H, Carbon Dioxide Level 20L, Anion Gap 10, Blood Urea Nitrogen 13, Creatinine 0.69, Estimat Glomerular Filtration Rate 90, BUN/Creatinine Ratio 19, Glucose Level 156H, Calcium Level 8.4L, Total Bilirubin 1.0, Aspartate Amino Transf (AST/SGOT) 94H, Alanine Aminotransferase (ALT/SGPT) 160H, Alkaline Phosphatase 173H, Total Protein 5.9L, Albumin 3.3, Eosinophils % (Manual) 1, Basophils % (Manual) 1, Band Neutrophils 5, Direct Bilirubin 0.6H, Indirect Bilirubin 0.4 Microbiology 05/21/23 Urine Culture - Preliminary, Resulted Gram Negative Joao Conclusion/Plan 05/22/2023: -Sepsis * Rocephin, Fluids, Monitoring vitals and labs -UTI * Rocephin -Liver Injury, potentially gallbladder pathology * US * GGT * Physical exam shows no tenderness, negative martins sign. AST/ALT and ALKPHOS elevated. Bili Normal JOCELYN MENDOZA DO 05/22/232027: History of Present Illness History of Present Illness Reason for visit/HPI Chief complaint: Sepsis from acute pyelonephritis HPI: This is a 73-year-old female clinic patient of mine with a history of UTIs and hyperlipidemia with hypertension who presented with nausea and vomiting found to have sepsis from UTI and blood cultures positive for gram-negative joao. Patient was placed empirically on Rocephin. Date of Admission 05/22/2023 Date of Discharge N/A Time Seen by Provider: 10:00 Allergies and Home Medications Allergies Coded Allergies: codeine (Unverified Allergy, Unknown, N/V, 03/18/16) nitrofurantoin (Verified Allergy, Unknown, 03/18/16) Patient Home Medication List Home Medication List Reviewed: Yes Acetaminophen (Tylenol Extra Strength) 500 Mg Tablet, 1,000 MG PO Q8H PRN for PAIN-MILD (1-4), (Reported) Entered as Reported by: IRVIN SMALL on 05/22/231138 Last Action: Continued Alprazolam (Alprazolam) 0.5 Mg Tablet, 0.5 MG PO TID PRN for ANXIETY, (Reported) Entered as Reported by: IRVIN SMALL on 05/22/231138 Last Action: Continued Amlodipine Besylate (Amlodipine Besylate) 5 Mg Tablet, 5 MG PO DAILY, (Reported) Entered as Reported by: IRVIN SMALL on 05/22/231138 Last Action: Continued Calcium Carbonate/Vitamin D3 (Calcium 600 + Vit D Caplet) 600 Mg Calcium-10 Mcg (400 Unit) Tablet, 1 EACH PO BID, (Reported) Entered as Reported by: IRVIN SMALL on 05/22/231138 Last Action: Continued Cholecalciferol (Vitamin D3) (Vitamin D3) 50 Mcg (2000 Unit) Tablet, 50 MCG PO DAILY, (Reported) Entered as Reported by: IRVIN SMALL on 05/22/231138 Last Action: Converted Cyanocobalamin (Vitamin B-12) (Vitamin B-12) 500 Mcg Tablet, 500 MCG PO DAILY, (Reported) Entered as Reported by: IRVIN SMALL on 05/22/231138 Last Action: Converted Docusate Sodium (Docusate Sodium) 100 Mg Capsule, 100 MG PO BID PRN for CONSTIPATION-1ST LINE, (Reported) Entered as Reported by: IRVIN SMALL on 05/22/231138 Last Action: Continued Ibuprofen (Ibuprofen) 200 Mg Tablet, 400 MG PO Q8H PRN for PAIN-MILD (1-4), (Reported) Entered as Reported by: IRVIN SMALL on 05/22/231138 Last Action: Continued Levothyroxine Sodium (Levothyroxine Sodium) 50 Mcg Tablet, 50 MCG PO DAILY, (Reported) Entered as Reported by: IRVIN SMALL on 05/22/231138 Last Action: Continued Magnesium Oxide (Magnesium) 400 Mg Magnesium Tablet, 400 MG PO DAILY, (Reported) Entered as Reported by: IRVIN SMALL on 05/22/231138 Last Action: Converted Olmesartan Medoxomil (Olmesartan Medoxomil) 40 Mg Tablet, 40 MG PO DAILY, (Reported) Entered as Reported by: IRVIN SMALL on 05/22/231138 Last Action: Converted Omeprazole (Omeprazole) 40 Mg Capsule.dr, 40 MG PO DAILY, (Reported) Entered as Reported by: IRVIN SMALL on 05/22/231138 Last Action: Converted Rosuvastatin Calcium (Rosuvastatin Calcium) 40 Mg Tablet, 40 MG PO HS, (Reported) Entered as Reported by: IRVIN SMALL on 05/22/231138 Last Action: Converted Zinc Gluconate (Zinc) 50 Mg Tablet, 50 MG PO DAILY, (Reported) Entered as Reported by: IRVIN SMALL on 05/22/231138 Last Action: Converted [Estradiol 10MCG] 10MCG CREAM.GM., 1 APPLIC VG GRACE,TH @[facility], (Reported) Entered as Reported by: IRVIN SMALL on 05/22/231138 Last Action: Converted Discontinued Medications Atenolol (Atenolol) 25 Mg Tablet, 1 TAB PO BID, (Reported) Discontinued Reason: No Longer Taking Entered as Reported by: JERI OSBORNE on 03/18/161915 Last Action: Discontinued Phenazopyridine HCl (Pyridium) 200 Mg Tablet, 1 TAB PO TID Discontinued Reason: No Longer Taking Prescribed by: VINNIE ESPINOSA on 07/12/171428 Last Action: Discontinued Rosuvastatin Calcium (Crestor) 5 Mg Tablet, Unknown Dose PO DAILY, (Reported) Discontinued Reason: No Longer Taking Entered as Reported by: JERI OSBORNE on 03/18/161915 Last Action: Discontinued Sulfamethoxazole/Trimethoprim (Bactrim Ds Tablet) 1 Each Tablet, 1 EACH PO BID Discontinued Reason: No Longer Taking Prescribed by: VINNIE ESPINOSA on 07/12/171428 Last Action: Discontinued Past Pjmmikw-Hhkrwp-Shvylb Hx Patient Social History Marrital Status: Employed/Student: retired Smoking Status: Never a Smoker Cardiovascular High Cholesterol, Hypertension Endocrine Endocrine Disorders: Hypothyroidsim Review of Systems Constitutional: see HPI, malaise, weakness EENTM: no symptoms reported Respiratory: no symptoms reported Cardiovascular: no symptoms reported Gastrointestinal: loss of appetite, nausea, vomiting Genitourinary: no symptoms reported, decreased output, dysuria, frequency Musculoskeletal: no symptoms reported Skin: no symptoms reported Psychiatric/Neurological: No Symptoms Reported All Other Systems Reviewed Negative Unless Noted: Yes Physical Exam General Appearance: WD/WN, Anxious, Chronically ill, Mild Distress Respiratory: Lungs Clear, Normal Breath Sounds Cardiovascular: Regular Rate, Rhythm Neurologic/Psychiatric: Alert, Oriented x3, No Motor/Sensory Deficits, Normal Mood/Affect Short Stay Diagnosis Discharge Diagnosis-Short Stay Admission Diagnosis: Sepsis acute pyelonephritis Final Discharge Diagnosis: Sepsis acute pyelonephritis Nausea and vomiting Acute kidney injury Dehydration Hypertension Hyperlipidemia Hypothyroidism Conclusion Conclusion/Plan IV antibiotics IV fluid Supervisory-Addendum Brief Verification & Attestation Participated in pt care: history, MDM, physical Personally performed: exam, history, MDM, supervision of care Care discussed with: Medical Student Procedures: n/a Results interpretation: Verified all documentation Verification and Attestation of Medical Student E/M Service A medical student performed and documented this service in my presence. I reviewed and verified all information documented by the medical student and made modifications to such information, when appropriate. I personally performed the physical exam and medical decision making. Jocelyn Mendoza May 22, 2023,20:28 ROYER MORSE May 22, 2023 11:58 JOCELYN MENDOZA DO May 22, 2023 20:28
--- NOTE | 2023-05-22 17:29 | Diagnostic Imaging Report ---
PROCEDURE: US Abdomen, limited. TECHNIQUE: Multiple realtime grayscale images were obtained over the abdomen in various projections. INDICATION: Elevated liver enzymes. FINDINGS: Liver parenchyma is homogeneous with normal echotexture. The portal vein is patent with hepatopetal flow. The gallbladder is clear with no stones or wall thickening. The common duct is not dilated. Pancreas is normal. Aorta is obscured by bowel gas. IVC is patent. Right kidney measures 10.9 cm in length. 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 IMPRESSION: Unremarkable liver. Dictated by: Dictated on workstation # [id number]
[2023-05-22] MEDS ORDERED: IBUPROFEN 200 MG TABLET PO PRN (20:30)
[2023-05-22] MEDS ORDERED: ALPRAZolam 0.5 MG TABLET PO PRN (20:30)
[2023-05-22] MEDS ORDERED: DOCUSATE SODIUM 100 MG CAPSULE PO PRN (20:30)
[2023-05-22 20:56] LABS: HEPATITIS C ANTIBODY C Non-Reactive (Non-Reactive)
[2023-05-22] MEDS ORDERED: cefTRIAXone 1,000 MG VIAL IV/IM IM SCH (22:00)
[2023-05-22] MEDS: CALCIUM CARBONATE 600 MG +VITAMIN D TABLET PO SCH (22:22)
[2023-05-22] MEDS: SENNOSIDES 8.6 MG TABLET PO SCH (22:22)
[2023-05-22] MEDS: DOCUSATE SODIUM 100 MG CAPSULE PO SCH (22:22)
[2023-05-22] MEDS: cefTRIAXone 1 GM/NS 50 ML IVPB IV SCH ×2 (22:52)
[2023-05-23 03:30] VITALS: BP 120/82
[2023-05-23] MEDS: CYANOCOBALAMIN 1,000 MCG TABLET PO SCH (05:18)
[2023-05-23] MEDS: PANTOPRAZOLE 40 MG TABLET PO SCH (05:18)
[2023-05-23] MEDS: LEVOTHYROXINE 50 MCG TABLET PO SCH (05:19)
[2023-05-23] MEDS: NS IV 1000 ML 1,000 ML IV SCH (05:24)
[2023-05-23 05:56] LABS: BASOPHILS # (AUTO) 0.1 10^3/uL (0.0-0.1); BASOPHILS % (AUTO) 1 % (0-10); EOSINOPHILS # (AUTO) 0.2 10^3/uL (0.0-0.3); EOSINOPHILS % (AUTO) 2 % (0-10); HEMATOCRIT 30 % (35-52); HEMOGLOBIN 9.7 g/dL (11.5-16.0); LYMPHOCYTES # (AUTO) 0.8 10^3/uL (1.0-4.0); LYMPHOCYTES % (AUTO) 7 % (12-44); MEAN CORPUSCULAR HEMOGLOBIN 30 pg (25-34); MEAN CORPUSCULAR HGB CONC 32 g/dL (32-36); MEAN CORPUSCULAR VOLUME 93 fL (80-99); MEAN PLATELET VOLUME 11.5 fL (9.0-12.2); MONOCYTES # (AUTO) 0.9 10^3/uL (0.0-1.0); MONOCYTES % (AUTO) 8 % (0-12); NEUTROPHILS # (AUTO) 9.4 10^3/uL (1.8-7.8); NEUTROPHILS % (AUTO) 82 % (42-75); PLATELET COUNT 167 10^3/uL (130-400); WHITE BLOOD COUNT 11.4 10^3/uL (4.3-11.0)
[2023-05-23 06:21] LABS: ALBUMIN 3.2 GM/DL (3.2-4.5); POTASSIUM 3.8 MMOL/L (3.6-5.0)
[2023-05-23 06:22] LABS: CALCIUM 8.7 MG/DL (8.5-10.1)
[2023-05-23 06:25] LABS: BILIRUBIN,TOTAL 0.9 MG/DL (0.1-1.0)
[2023-05-23 06:27] LABS: CREATININE SERUM 0.68 MG/DL (0.60-1.30)
[2023-05-23 08:13] VITALS: BP 160/80
[2023-05-23] MEDS: SENNOSIDES 8.6 MG TABLET PO SCH ×2 (08:24→20:19)
[2023-05-23] MEDS: MAGNESIUM OXIDE 400 MG TABLET PO SCH (08:24)
[2023-05-23] MEDS: CALCIUM CARBONATE 600 MG +VITAMIN D TABLET PO SCH ×2 (08:24→20:14)
[2023-05-23] MEDS: VITAMIN D3 25 MCG (1,000 UNITS) TABLET PO SCH (08:25)
[2023-05-23] MEDS: amLODIPine 5 MG TABLET PO SCH (09:10)
[2023-05-23] MEDS: ZINC SULFATE 220 MG CAPSULE PO SCH (09:10)
[2023-05-23] MEDS: VALSARTAN 80 MG (DIOVAN) TAB PO SCH (09:11)
[2023-05-23] MEDS: DOCUSATE SODIUM 100 MG CAPSULE PO SCH ×2 (09:11→20:19)
[2023-05-23] MEDS: ENOXAPARIN 40 MG/0.4 ML SYRINGE SC SCH (11:18)
[2023-05-23 11:27] VITALS: BP 160/80
--- NOTE | 2023-05-23 12:25 | Progress Note ---
ROYER MORSE 05/23/23 1225: Subjective Date Seen by a Provider: May 23, 2023 Time Seen by a Provider: 11:06 Subjective/Events-last exam 05/23/2023: CC: Sepsis HPI: Nancy, 73F, notes that she feels slightly better. She is not in any pain. She denies any symptoms. Nancy endorses that she no longer has any nausea or vomitting. When asked about her stomach, there are no current concerns. She also says that she doesn't feel warm anymore and thinks that she has improved. Nancy notes that she has some anxieties about her Gallbladder given that she had an US yesterday, but it was noted to be normal. She is urinating and had a BM. She has no other concerns. Review of Systems General: No Chills, No Night Sweats, No Fatigue, No Malaise, No Appetite, No Other HEENT: No Head Aches, No Visual Changes, No Eye Pain, No Ear Pain, No Dysphasia, No Sinus Congestion, No Post Nasal Drip, No Sore Throat, No Other Pulmonary: No Dyspnea, No Cough, No Pleuritic Chest Pain, No Other Cardiovascular: No: Chest Pain, Palpitations, Orthopnea, Paroxysmal Noc. Dyspnea, Edema, Lt Headedness, Other Gastrointestinal: No: Nausea, Vomiting, Abdominal Pain, Diarrhea, Constipation, Melena, Hematochezia, Other Genitourinary: No Dysuria, No Frequency, No Incontinence, No Hematuria, No Retention, No Other Musculoskeletal: No: other, neck pain, shoulder pain, arm pain, back pain, hand pain, leg pain, foot pain Neurological: No: Weakness, Numbness, Incoordination, Change in speech, Confusion, Seizures, Other Focused Exam Lactate Level 05/21/23 23:16: Lactic Acid Level 2.10*H 05/22/23 02:23: Lactic Acid Level 0.86 Objective Exam Last Set of Vital Signs Vital Signs Date Time Temp Pulse Resp B/P (MAP) Pulse Ox O2 Delivery O2 Flow Rate FiO2 05/23/23 11:27 36.7 97 16 160/80 (106) 94 Room Air Capillary Refill : Less Than 3 Seconds I&O Intake and Output 05/23/23 00:00 Intake Total 2990 ml Balance 2990 ml Intake Oral 2890 ml IV Total 100 ml # Voids 8 # Bowel Movements 2 Daily Weight Change No General: Alert, Oriented X3, Cooperative, No Acute Distress HEENT: EOMI, Mucous Memb Moist/[place] Neck: Supple, No JVD Lungs: Clear to Auscultation, Normal Air Movement Heart: Regular Rate, Normal S1, Normal S2, No Murmurs Abdomen: Normal Bowel Sounds, Soft, No Tenderness Extremities: No Clubbing, No Cyanosis, No Edema, Normal Pulses Skin: No Rashes, No Significant Lesion Neuro: Normal Speech, Normal Tone, Sensation Intact Results Lab Laboratory Tests 05/23/23 05:46: White Blood Count 11.4H, Red Blood Count 3.24L, Hemoglobin 9.7L, Hematocrit 30L, Mean Corpuscular Volume 93, Mean Corpuscular Hemoglobin 30, Mean Corpuscular Hemoglobin Concent 32, Red Cell Distribution Width 13.8, Platelet Count 167, Mean Platelet Volume 11.5, Immature Granulocyte % (Auto) 1, Neutrophils (%) (Auto) 82H, Lymphocytes (%) (Auto) 7L, Monocytes (%) (Auto) 8, Eosinophils (%) (Auto) 2, Basophils (%) (Auto) 1, Neutrophils # (Auto) 9.4H, Lymphocytes # (Auto) 0.8L, Monocytes # (Auto) 0.9, Eosinophils # (Auto) 0.2, Basophils # (Auto) 0.1, Immature Granulocyte # (Auto) 0.1, Sodium Level 140, Potassium Level 3.8, Chloride Level 112H, Carbon Dioxide Level 20L, Anion Gap 8, Blood Urea Nitrogen 9, Creatinine 0.68, Estimat Glomerular Filtration Rate 91, BUN/Creatinine Ratio 13, Glucose Level 153H, Calcium Level 8.7, Corrected Calcium 9.3, Total Bilirubin 0.9, Aspartate Amino Transf (AST/SGOT) 154H, Alanine Aminotransferase (ALT/SGPT) 205H, Alkaline Phosphatase 209H, Total Protein 6.0L, Albumin 3.2 Suspected liver elevation due to disseminated infection from the acute pyelonephritis. Microbiology 05/21/23 Blood Culture - Preliminary, Resulted Escherichia coli Testing In Progress Staph, Coag Neg (DOOR MAKER) 05/21/23 Urine Culture - Preliminary, Resulted Gram Negative Bacillus 1 Given blood culture, awaiting sensitivities- will likely keep another night to ensure coverage. Assessment/Plan Assessment/Plan Assess & Plan/Chief Complaint 05/23/2023: Assessment/Plan: -Sepsis from Acute Pyleonephritis * Rocephin * Awaiting sensitivities to alter treatment plan -Elevated LFT * monitor CMP, clear infection -VANDANA * BUN and Cr have normalized, continue to monitor -Dehydration * PO fluid intake encouragement * IV fluids Patient to remain in unit for another day to ensure proper treatment of infection given potential organ involvement as shown by elevated LFTs. Awaiting sensitivities to ensure proper coverage. Nancy has recurrent UTI so there is a higher likelihood that there will be resistance that needs to be accounted for. Diagnosis/Problems Diagnosis/Problems (1) Sepsis Status: Acute Qualifiers: Qualified Codes: A41.9 - Sepsis, unspecified organism (2) Acute pyelonephritis due to bacteria Status: Acute (3) Dehydration Status: Acute JOCELYN MENDOZA DO 05/23/232050: Subjective Subjective/Events-last exam Much improved BCx pending but it does have GNR Objective Exam General: Alert, Oriented X3, Cooperative, No Acute Distress Lungs: Clear to Auscultation, Normal Air Movement Heart: Regular Rate, Normal S1, Normal S2, No Murmurs Psych/Mental Status: Mental Status NL, Mood NL Assessment/Plan Assessment/Plan Assess & Plan/Chief Complaint Monitor closely Supervisory-Addendum Brief Verification & Attestation Participated in pt care: history, MDM, physical Personally performed: exam, history, MDM, supervision of care Care discussed with: Medical Student Procedures: n/a Results interpretation: Verified all documentation Verification and Attestation of Medical Student E/M Service A medical student performed and documented this service in my presence. I reviewed and verified all information documented by the medical student and made modifications to such information, when appropriate. I personally performed the physical exam and medical decision making. Joceyln Mendoza May 23, 2023,20:50 ROYER MORSE May 23, 2023 12:25 JOCELYN MENDOZA DO May 23, 2023 20:51
[2023-05-23 16:42] VITALS: BP 150/80
[2023-05-23 20:13] VITALS: BP 149/70
[2023-05-23] MEDS ORDERED: BENZONATATE 100 MG CAPSULE PO PRN ×2 (20:30→21:30)
[2023-05-23] MEDS ORDERED: BENZONATATE 100 MG CAPSULE PO ONE (20:33)
[2023-05-23] MEDS ORDERED: ESTRADIOL VAGINAL VG SCH (21:00)
[2023-05-23] MEDS ORDERED: ROSUVASTATIN 20 MG TABLET PO SCH (21:00)
[2023-05-23] MEDS: cefTRIAXone 1 GM/NS 50 ML IVPB IV SCH ×2 (21:55)
[2023-05-23] MEDS ORDERED: cefTRIAXone 1,000 MG VIAL IV/IM IV SCH (22:00)
[2023-05-23 23:49] VITALS: BP 162/77
[2023-05-24 04:36] VITALS: BP 152/74
[2023-05-24] MEDS: PANTOPRAZOLE 40 MG TABLET PO SCH (05:33)
[2023-05-24] MEDS: CYANOCOBALAMIN 1,000 MCG TABLET PO SCH (05:33)
[2023-05-24] MEDS: LEVOTHYROXINE 50 MCG TABLET PO SCH (05:33)
[2023-05-24 05:35] LABS: BASOPHILS # (AUTO) 0.1 10^3/uL (0.0-0.1); BASOPHILS % (AUTO) 1 % (0-10); EOSINOPHILS # (AUTO) 0.2 10^3/uL (0.0-0.3); EOSINOPHILS % (AUTO) 2 % (0-10); HEMATOCRIT 30 % (35-52); HEMOGLOBIN 9.9 g/dL (11.5-16.0); LYMPHOCYTES % (AUTO) 11 % (12-44); MEAN CORPUSCULAR HEMOGLOBIN 30 pg (25-34); MEAN CORPUSCULAR HGB CONC 33 g/dL (32-36); MEAN CORPUSCULAR VOLUME 90 fL (80-99); MEAN PLATELET VOLUME 11.4 fL (9.0-12.2); MONOCYTES # (AUTO) 1.1 10^3/uL (0.0-1.0); MONOCYTES % (AUTO) 12 % (0-12); NEUTROPHILS # (AUTO) 6.4 10^3/uL (1.8-7.8); NEUTROPHILS % (AUTO) 72 % (42-75); PLATELET COUNT 175 10^3/uL (130-400); WHITE BLOOD COUNT 8.9 10^3/uL (4.3-11.0)
[2023-05-24 05:45] LABS: ALBUMIN 3.2 GM/DL (3.2-4.5)
[2023-05-24 05:46] LABS: POTASSIUM 3.5 MMOL/L (3.6-5.0)
[2023-05-24 05:47] LABS: CALCIUM 8.9 MG/DL (8.5-10.1)
[2023-05-24 05:48] LABS: TOTAL PROTEIN 6.1 GM/DL (6.4-8.2)
[2023-05-24 05:50] LABS: BILIRUBIN,TOTAL 0.7 MG/DL (0.1-1.0)
[2023-05-24 05:52] LABS: CREATININE SERUM 0.62 MG/DL (0.60-1.30)
[2023-05-24 07:34] VITALS: BP 163/70
[2023-05-24] MEDS: VALSARTAN 80 MG (DIOVAN) TAB PO SCH (08:16)
[2023-05-24] MEDS: MAGNESIUM OXIDE 400 MG TABLET PO SCH (08:17)
[2023-05-24] MEDS: VITAMIN D3 25 MCG (1,000 UNITS) TABLET PO SCH (08:17)
[2023-05-24] MEDS: ZINC SULFATE 220 MG CAPSULE PO SCH (08:17)
[2023-05-24] MEDS: SENNOSIDES 8.6 MG TABLET PO SCH (08:17)
[2023-05-24] MEDS: DOCUSATE SODIUM 100 MG CAPSULE PO SCH (08:17)
[2023-05-24] MEDS: amLODIPine 5 MG TABLET PO SCH (08:18)
[2023-05-24] MEDS: CALCIUM CARBONATE 600 MG +VITAMIN D TABLET PO SCH (08:28)
[2023-05-24] MEDS: ACETAMINOPHEN 325 MG TABLET PO PRN (09:00)
[2023-05-24] MEDS: ENOXAPARIN 40 MG/0.4 ML SYRINGE SC SCH (11:18)
[2023-05-24 11:45] VITALS: BP 149/79
[2023-05-24] MEDS ORDERED: CEFD300C3 PO (11:53)
--- NOTE | 2023-05-24 12:42 | Progress Note ---
ROYER MORSE 05/24/23 1242: Progress Note 05/24/2023: CC: UTI/Sepsis Course: Nancy is a 73 year old female that presented to the ED on 05/21 due to N/V with a temperature of 105. She was also tachycardic which lead to a suspected case of sepsis. Investigation found that she likely had a urinary infection. Nancy was admitted to the 4th floor MED/SURG floor due to acute pyelonephritis. Nancy has a history of recurrent UTIs. She was started on Rocephin for treatment. Nancy endorses recurrent UTIs along with a history of HTN and HLD. Her labs also showed an elevated lactic acid on 05/21 at 2.1 that has reduced to 0.86 on 05/22. 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 Nancy also has had elevated LFTs, which is likely due to the disseminated infection. The elevated LFTs were worked up with an US of the gallbladder and liver which showed no acute concerns. E. Coli was found in her UA. E. Coli and Klebsiella were cultured in her blood. It was suspected that Nancy's diagnosis is sepsis caused by acute pyelonephritis. Due to her elevated labs and concerns, Nancy was kept in the hospital until sensitivities came back. On 05/24 the sensitivities showed that her infection would be covered by the rocephin and other cephalosporins. During her course, Nancy has improved significantly. She has had no return of N/V and has continued to gain strength. She appears well and is ready to discharge home. She has support at home and is connected to her PCP for a follow up in the coming week. She will go home on cefdinir 300 mg BID for 10 days to ensure proper clearance of her infection. She is expected to make a full recovery with a good prognosis. JOCELYN MENDOZA DO 05/24/23 0761: Supervisory-Addendum Brief Verification & Attestation Participated in pt care: history, MDM, physical Personally performed: exam, history, MDM, supervision of care Care discussed with: Medical Student Procedures: n/a Results interpretation: Verified all documentation Verification and Attestation of Medical Student E/M Service A medical student performed and documented this service in my presence. I reviewed and verified all information documented by the medical student and made modifications to such information, when appropriate. I personally performed the physical exam and medical decision making. Jocelyn Mendoza, May 24, 2023,21:17 ROYER MORSE May 24, 2023 12:42 JOCELYN MENDOZA DO May 24, 2023 21:17
[2023-05-24 14:45] VITALS: BP 149/79
--- NOTE | 2023-05-24 21:20 | Discharge Summary ---
Diagnosis/Chief Complaint Date of Admission May 22, 2023 at 01:14 Date of Discharge May 24, 2023 at 14:45 Discharge Date: May 24, 2023 Discharge Diagnosis 05/23/2023: Assessment/Plan: -Sepsis from Acute Pyleonephritis * Rocephin * Awaiting sensitivities to alter treatment plan -Elevated LFT * monitor CMP, clear infection -VANDANA * BUN and Cr have normalized, continue to monitor -Dehydration * PO fluid intake encouragement * IV fluids Reason Hospital Visit Chief complaint: Sepsis from acute pyelonephritis HPI: This is a 73-year-old female clinic patient of [facility] with a history of UTIs and hyperlipidemia with hypertension who presented with nausea and vomiting found to have sepsis from UTI and blood cultures positive for gram-negative emily. Patient was placed empirically on Rocephin. Discharge Summary Discharge Physical Examination Allergies: Coded Allergies: codeine (Unverified Allergy, Unknown, N/V, 03/18/16) nitrofurantoin (Verified Allergy, Unknown, 03/18/16) Vitals & I&Os Vital Signs Date Time Temp Pulse Resp B/P (MAP) Pulse Ox O2 Delivery O2 Flow Rate FiO2 05/24/23 14:45 36.5 88 24 149/79 95 Room Air General Appearance: Alert, Oriented X3, Cooperative Respiratory: Clear to Auscultation Psych/Mental Status: Mental Status NL Hospital Course Was the Problem List Reviewed?: Yes Nancy is a 73 year old female that presented to the ED on 05/21 due to N/V with a temperature of 105. She was also tachycardic which lead to a suspected case of sepsis. Investigation found that she likely had a urinary infection. Nancy was admitted to the 4th floor MED/SURG floor due to acute pyelonephritis. Nancy has a history of recurrent UTIs. She was started on Rocephin for treatment. Nancy endorses recurrent UTIs along with a history of HTN and HLD. Her labs also showed an elevated lactic acid on 05/21 at 2.1 that has reduced to 0.86 on 05/22. 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 Nancy also has had elevated LFTs, which is likely due to the disseminated infection. The elevated LFTs were worked up with an US of the gallbladder and liver which showed no acute concerns. E. Coli was found in her UA. E. Coli and Klebsiella were cultured in her blood. It was suspected that Nancy's diagnosis is sepsis caused by acute pyelonephritis. Due to her elevated labs and concerns, Nancy was kept in the hospital until sensitivities came back. On 05/24 the sensitivities showed that her infection would be covered by the rocephin and other cephalosporins. During her course, Nancy has improved significantly. She has had no return of N/V and has continued to gain strength. She appears well and is ready to discharge home. She has support at home and is connected to her PCP for a follow up in the coming week. She will go home on cefdinir 300 mg BID for 10 days to ensure proper clearance of her infection. She is expected to make a full recovery with a good prognosis. Labs (last 24 hrs) Laboratory Tests 05/21/23 23:16: White Blood Count 8.9, Red Blood Count 3.95, Hemoglobin 11.6, Hematocrit 35, Mean Corpuscular Volume 89, Mean Corpuscular Hemoglobin 29, Mean Corpuscular Hemoglobin Concent 33, Red Cell Distribution Width 13.3, Platelet Count 179, Mean Platelet Volume 11.4, Immature Granulocyte % (Auto) 1, Neutrophils (%) (Auto) 92H, Lymphocytes (%) (Auto) 4L, Monocytes (%) (Auto) 2, Eosinophils (%) (Auto) 0, Basophils (%) (Auto) 0, Neutrophils # (Auto) 8.2H, Lymphocytes # (Auto) 0.4L, Monocytes # (Auto) 0.2, Eosinophils # (Auto) 0.0, Basophils # (Auto) 0.0, Immature Granulocyte # (Auto) 0.1, Neutrophils % (Manual) 92, Lymphocytes % (Manual) 3, Monocytes % (Manual) 4, Blood Morphology Comment NORMAL, Prothrombin Time 13.9, INR Comment 1.1, Activated Partial Thromboplast Time 31, Sodium Level 140, Potassium Level 3.4L, Chloride Level 106, Carbon Dioxide Level 20L, Anion Gap 14, Blood Urea Nitrogen 19H, Creatinine 0.77, Estimat Glomerular Filtration Rate 80, BUN/Creatinine Ratio 25, Glucose Level 150H, Lactic Acid Level 2.10*H, Calcium Level 9.2, Corrected Calcium 9.3, Total Bilirubin 1.4H, Aspartate Amino Transf (AST/SGOT) 176H, Alanine Aminotransferase (ALT/SGPT) 223H, Alkaline Phosphatase 191H, C-Reactive Protein High Sensitivity 20.38H, Total Protein 6.9, Albumin 3.9, Influenza Type A (RT-PCR) Not Detected, Influenza Type B (RT-PCR) Not Detected, SARS-CoV-2 RNA (RT-PCR) Not Detected 05/21/23 23:25: Urine Color YELLOW, Urine Clarity SL CLOUDY, Urine pH 7.0, Urine Specific [place] 1.020, Urine Protein 2+H, Urine Glucose (UA) NEGATIVE, Urine Ketones NEGATIVE, Urine Nitrite POSITIVEH, Urine Bilirubin NEGATIVE, Urine Urobilinogen 2.0, Urine Leukocyte Esterase 1+H, Urine RBC (Auto) 2+H, Urine RBC NONE, Urine WBC 25-50H, Urine Crystals NONE, Urine Bacteria LARGEH, Urine Casts NONE, Urine Mucus NEGATIVE, Urine Culture Indicated YES 05/22/23 02:23: Lactic Acid Level 0.86 05/22/23 10:23: White Blood Count 18.2H, Red Blood Count 3.34L, Hemoglobin 9.8L, Hematocrit 31L, Mean Corpuscular Volume 93, Mean Corpuscular Hemoglobin 29, Mean Corpuscular Hemoglobin Concent 32, Red Cell Distribution Width 13.8, Platelet Count 159, Mean Platelet Volume 11.6, Immature Granulocyte % (Auto) 2, Neutrophils (%) (Auto) 89H, Lymphocytes (%) (Auto) 4L, Monocytes (%) (Auto) 4, Eosinophils (%) (Auto) 0, Basophils (%) (Auto) 1, Neutrophils # (Auto) 16.2H, Lymphocytes # (Auto) 0.8L, Monocytes # (Auto) 0.7, Eosinophils # (Auto) 0.0, Basophils # (Auto) 0.1, Immature Granulocyte # (Auto) 0.4H, Neutrophils % (Manual) 86, Lymphocytes % (Manual) 5, Monocytes % (Manual) 2, Blood Morphology Comment NORMAL, Sodium Level 141, Potassium Level 3.4L, Chloride Level 111H, Carbon Dioxide Level 20L, Anion Gap 10, Blood Urea Nitrogen 13, Creatinine 0.69, Estimat Glomerular Filtration Rate 90, BUN/Creatinine Ratio 19, Glucose Level 156H, Calcium Level 8.4L, Total Bilirubin 1.0, Aspartate Amino Transf (AST/SGOT) 94H, Alanine Aminotransferase (ALT/SGPT) 160H, Alkaline Phosphatase 173H, Total Protein 5.9L, Albumin 3.3, Eosinophils % (Manual) 1, Basophils % (Manual) 1, Band Neutrophils 5, Direct Bilirubin 0.6H, Indirect Bilirubin 0.4, Gamma Gluta myl Transpeptidase 182H, Hepatitis A IgM Antibody Non-Reactive, Hepatitis B Surface Antigen Non-Reactive, Hepatitis B Core IgM Antibody Non-Reactive, Hepatitis C Antibody Non-Reactive 05/23/23 05:46: White Blood Count 11.4H, Red Blood Count 3.24L, Hemoglobin 9.7L, Hematocrit 30L, Mean Corpuscular Volume 93, Mean Corpuscular Hemoglobin 30, Mean Corpuscular Hemoglobin Concent 32, Red Cell Distribution Width 13.8, Platelet Count 167, Mean Platelet Volume 11.5, Immature Granulocyte % (Auto) 1, Neutrophils (%) (Auto) 82H, Lymphocytes (%) (Auto) 7L, Monocytes (%) (Auto) 8, Eosinophils (%) (Auto) 2, Basophils (%) (Auto) 1, Neutrophils # (Auto) 9.4H, Lymphocytes # (Auto) 0.8L, Monocytes # (Auto) 0.9, Eosinophils # (Auto) 0.2, Basophils # (Auto) 0.1, Immature Granulocyte # (Auto) 0.1, Sodium Level 140, Potassium Level 3.8, Chloride Level 112H, Carbon Dioxide Level 20L, Anion Gap 8, Blood Urea Nitrogen 9, Creatinine 0.68, Estimat Glomerular Filtration Rate 91, BUN/Creatinine Ratio 13, Glucose Level 153H, Calcium Level 8.7, Corrected Calcium 9.3, Total Bilirubin 0.9, Aspartate Amino Transf (AST/SGOT) 154H, Alanine Aminotransferase (ALT/SGPT) 205H, Alkaline Phosphatase 209H, Total Protein 6.0L, Albumin 3.2 05/24/23 05:20: White Blood Count 8.9, Red Blood Count 3.33L, Hemoglobin 9.9L, Hematocrit 30L, Mean Corpuscular Volume 90, Mean Corpuscular Hemoglobin 30, Mean Corpuscular Hemoglobin Concent 33, Red Cell Distribution Width 13.5, Platelet Count 175, Mean Platelet Volume 11.4, Immature Granulocyte % (Auto) 2, Neutrophils (%) (Auto) 72, Lymphocytes (%) (Auto) 11L, Monocytes (%) (Auto) 12, Eosinophils (%) (Auto) 2, Basophils (%) (Auto) 1, Neutrophils # (Auto) 6.4, Lymphocytes # (Auto) 1.0, Monocytes # (Auto) 1.1H, Eosinophils # (Auto) 0.2, Basophils # (Auto) 0.1, Immature Granulocyte # (Auto) 0.2H, Sodium Level 141, Potassium Level 3.5L, Chloride Level 109H, Carbon Dioxide Level 21, Anion Gap 11, Blood Urea Nitrogen 5L, Creatinine 0.62, Estimat Glomerular Filtration Rate 93, BUN/Creatinine Ratio 8, Glucose Level 104, Calcium Level 8.9, Corrected Calcium 9.5, Total Bilirubin 0.7, Aspartate Amino Transf (AST/SGOT) 132H, Alanine Aminotransferase (ALT/SGPT) 231H, Alkaline Phosphatase 228H, Total Protein 6.1L, Albumin 3.2 Microbiology 05/21/23 Blood Culture - Preliminary, Resulted Escherichia coli Staphylococcus epidermidis 05/21/23 Urine Culture - Final, Complete Klebsiella pneumoniae Escherichia coli Pending Labs Microbiology Date/Time Source Procedure Growth Status 05/21/23 23:26 Peripheral Rt Forearm Blood Culture - Preliminary Escherichia coli Staphylococcus epidermidis Resulted 05/21/23 23:25 Urine Clean Catch Urine Culture - Final Klebsiella pneumoniae Escherichia coli Complete 05/21/23 23:16 Peripheral Lt Ac Blood Culture - Preliminary Escherichia coli Resulted Laboratory Tests 05/21/23 23:16: White Blood Count 8.9, Red Blood Count 3.95, Hemoglobin 11.6, Hematocrit 35, Mean Corpuscular Volume 89, Mean Corpuscular Hemoglobin 29, Mean Corpuscular Hemoglobin Concent 33, Red Cell Distribution Width 13.3, Platelet Count 179, Mean Platelet Volume 11.4, Immature Granulocyte % (Auto) 1, Neutrophils (%) (Auto) 92, Lymphocytes (%) (Auto) 4, Monocytes (%) (Auto) 2, Eosinophils (%) (Auto) 0, Basophils (%) (Auto) 0, Neutrophils # (Auto) 8.2, Lymphocytes # (Auto) 0.4, Monocytes # (Auto) 0.2, Eosinophils # (Auto) 0.0, Basophils # (Auto) 0.0, Immature Granulocyte # (Auto) 0.1, Neutrophils % (Manual) 92, Lymphocytes % (Manual) 3, Monocytes % (Manual) 4, Blood Morphology Comment NORMAL, Prothrombin Time 13.9, INR Comment 1.1, Activated Partial Thromboplast Time 31, Sodium Level 140, Potassium Level 3.4, Chloride Level 106, Carbon Dioxide Level 20, Anion Gap 14, Blood Urea Nitrogen 19, Creatinine 0.77, Estimat Glomerular Filtration Rate 80, BUN/Creatinine Ratio 25, Glucose Level 150, Lactic Acid Level 2.10, Calcium Level 9.2, Corrected Calcium 9.3, Total Bilirubin 1.4, Aspartate Amino Transf (AST/SGOT) 176, Alanine Aminotransferase (ALT/SGPT) 223, Alkaline Phosphatase 191, C-Reactive Protein High Sensitivity 20.38, Total Protein 6.9, Albumin 3.9, Influenza Type A (RT-PCR) Not Detected, Influenza Type B (RT-PCR) Not Detected, SARS-CoV-2 RNA (RT-PCR) Not Detected 05/21/23 23:25: Urine Color YELLOW, Urine Clarity SL CLOUDY, Urine pH 7.0, Urine Specific [place] 1.020, Urine Protein 2+, Urine Glucose (UA) NEGATIVE, Urine Ketones NEGATIVE, Urine Nitrite POSITIVE, Urine Bilirubin NEGATIVE, Urine Urobilinogen 2.0, Urine Leukocyte Esterase 1+, Urine RBC (Auto) 2+, Urine RBC NONE, Urine WBC 25-50, Urine Crystals NONE, Urine Bacteria LARGE, Urine Casts NONE, Urine Mucus NEGATIVE, Urine Culture Indicated YES 05/22/23 02:23: Lactic Acid Level 0.86 05/22/23 10:23: White Blood Count 18.2, Red Blood Count 3.34, Hemoglobin 9.8, Hematocrit 31, Mean Corpuscular Volume 93, Mean Corpuscular Hemoglobin 29, Mean Corpuscular Hemoglobin Concent 32, Red Cell Distribution Width 13.8, Platelet Count 159, [place] n Platelet Volume 11.6, Immature Granulocyte % (Auto) 2, Neutrophils (%) (Auto) 89, Lymphocytes (%) (Auto) 4, Monocytes (%) (Auto) 4, Eosinophils (%) (Auto) 0, Basophils (%) (Auto) 1, Neutrophils # (Auto) 16.2, Lymphocytes # (Auto) 0.8, Monocytes # (Auto) 0.7, Eosinophils # (Auto) 0.0, Basophils # (Auto) 0.1, Immature Granulocyte # (Auto) 0.4, Neutrophils % (Manual) 86, Lymphocytes % (Manual) 5, Monocytes % (Manual) 2, Blood Morphology Comment NORMAL, Sodium Level 141, Potassium Level 3.4, Chloride Level 111, Carbon Dioxide Level 20, Anion Gap 10, Blood Urea Nitrogen 13, Creatinine 0.69, Estimat Glomerular Filtration Rate 90, BUN/Creatinine Ratio 19, Glucose Level 156, Calcium Level 8.4, Total Bilirubin 1.0, Aspartate Amino Transf (AST/SGOT) 94, Alanine Aguero otransferase (ALT/SGPT) 160, Alkaline Phosphatase 173, Total Protein 5.9, Albumin 3.3, Eosinophils % (Manual) 1, Basophils % (Manual) 1, Band Neutrophils 5, Direct Bilirubin 0.6, Indirect Bilirubin 0.4, Gamma Glutamyl Transpeptidase 182, Hepatitis A IgM Antibody Non-Reactive, Hepatitis B Surface Antigen Non- Reactive, Hepatitis B Core IgM Antibody Non-Reactive, Hepatitis C Antibody Non- Reactive 05/23/23 05:46: White Blood Count 11.4, Red Blood Count 3.24, Hemoglobin 9.7, Hematocrit 30, M corazon Corpuscular Volume 93, Mean Corpuscular Hemoglobin 30, Mean Corpuscular Hemoglobin Concent 32, Red Cell Distribution Width 13.8, Platelet Count 167, Mean Platelet Volume 11.5, Immature Granulocyte % (Auto) 1, Neutrophils (%) (Auto) 82, Lymphocytes (%) (Auto) 7, Monocytes (%) (Auto) 8, Eosinophils (%) (Auto) 2, Basophils (%) (Auto) 1, Neutrophils # (Auto) 9.4, Lymphocytes # (Auto) 0.8, Monocytes # (Auto) 0.9, Eosinophils # (Auto) 0.2, Basophils # (Auto) 0.1, Immature Granulocyte # (Auto) 0.1, Sodium Level 140, Potassium Level 3.8, Chloride Level 112, Carbon Dioxide Level 20, Anion Gap 8, Blood Urea Nitrogen 9, Creatinine 0.68, Estimat Glomerular Filtration Rate 91, BUN/Creatinine Ratio 13, Glucose Level 153, Calcium Level 8.7, Corrected Calcium 9.3, Total Bilirubin 0.9, Aspartate Amino Transf (AST/SGOT) 154, Alanine Aminotransferase (ALT/SGPT) 205, Alkaline Phosphatase 209, Total Protein 6.0, Albumin 3.2 05/24/23 05:20: White Blood Count 8.9, Red Blood Count 3.33, Hemoglobin 9.9, Hematocrit 30, Mean Corpuscular Volume 90, Mean Corpuscular Hemoglobin 30, Mean Corpuscular Hemoglobin Concent 33, Red Cell Distribution Width 13.5, Platelet Count 175, Mean Platelet Volume 11.4, Immature Granulocyte % (Auto) 2, Neutrophils (%) (Auto) 72, Lymphocytes (%) (Auto) 11, Monocytes (%) (Auto) 12, Eosinophils (%) (Auto) 2, Basophils (%) (Auto) 1, Neutrophils # (Auto) 6.4, Lymphocytes # (Auto) 1.0, Monocytes # (Auto) 1.1, Eosinophils # (Auto) 0.2, Basophils # (Auto) 0.1, Immature Granulocyte # (Auto) 0.2, Sodium Level 141, Potassium Level 3.5, Chloride Level 109, Carbon Dioxide Level 21, Anion Gap 11, Blood Urea Nitrogen 5, Creatinine 0.62, Estimat Glomerular Filtration Rate 93, BUN/Creatinine Ratio 8, Glucose Level 104, Calcium Level 8.9, Corrected Calcium 9.5, Total Bilirubin 0.7, Aspartate Amino Transf (AST/SGOT) 132, Alanine Aminotransferase (ALT/SGPT) 231, Alkaline Phosphatase 228, Total Protein 6.1, Albumin 3.2 Discharge Home Medications: Active Scripts Active Cefdinir 300 Mg Capsule 300 Mg PO BID Reported Ibuprofen 200 Mg Tablet 400 Mg PO Q8H PRN Tylenol Extra Strength (Acetaminophen) 500 Mg Tablet 1,000 Mg PO Q8H PRN Zinc (Zinc Gluconate) 50 Mg Tablet 50 Mg PO DAILY Docusate Sodium 100 Mg Capsule 100 Mg PO BID PRN Magnesium (Magnesium Oxide) 400 Mg Magnesium Tablet 400 Mg PO DAILY Calcium 600 + Vit D Caplet (Calcium Carbonate/Vitamin D3) 600 Mg Calcium-10 Mcg (400 Unit) Tablet 1 Each PO BID Vitamin D3 (Cholecalciferol (Vitamin D3)) 50 Mcg (2000 Unit) Tablet 50 Mcg PO DAILY Vitamin B-12 (Cyanocobalamin (Vitamin B-12)) 500 Mcg Tablet 500 Mcg PO DAILY Omeprazole 40 Mg Capsule.dr 40 Mg PO DAILY Rosuvastatin Calcium 40 Mg Tablet 40 Mg PO HS Amlodipine Besylate 5 Mg Tablet 5 Mg PO DAILY Levothyroxine Sodium 50 Mcg Tablet 50 Mcg PO DAILY Olmesartan Medoxomil 40 Mg Tablet 40 Mg PO DAILY [Estradiol 10MCG] 10MCG Cream.gm. 1 Applic VG GRACE,TH @ Alprazolam 0.5 Mg Tablet 0.5 Mg PO TID PRN Instructions to patient/family Please see electronic discharge instructions given to patient. TATYANA MENDOZA DO May 24, 2023 21:20
== END 2023-05-24 14:45 | disposition home or self-care (01) | DRG 872 ==
LOC: EDUNIT# 23:08 → ER 23:10 → 4TH 05-22 01:14
PROVIDERS: ADMIT Internal Medicine; ATTEND Internal Medicine
DX: A41.9 Sepsis, unspecified organism (principal); N10 Acute pyelonephritis; N17.9 Acute kidney failure, unspecified; Z20.822 Contact with and (suspected) exposure to COVID-19; R79.89 Other specified abnormal findings of blood chemistry; E86.0 Dehydration; I10 Essential (primary) hypertension; B96.20 Unspecified Escherichia coli [E. coli] as the cause of diseases classified elsewhere; B96.1 Klebsiella pneumoniae [K. pneumoniae] as the cause of diseases classified elsewhere; E78.00 Pure hypercholesterolemia, unspecified
CPT/HCPCS: 36415; 71045; 76705; 80048; 80053; 80074; 80076; 81000; 82977; 83605; 85007; 85025; 85027; 85610; 85730; 86141; 87040; 87077; 87088; 87186; 87636; 93005